=== PATIENT | female | born 1980 | race Caucasian/White ===

== ENCOUNTER 2019-05-21 06:54 | Inpatient (IN) | payer MEDICAID ==
[~2019-05-21] VITALS: Ht 147.3 cm; Wt 69.4 kg
[~2019-05-21 06:54] MED LIST: CIPR500T4 PO; DOCU-144 PO; FER325 PO; HYDR-3601 PO; IBUP200C11 PO; METR500T PO; POLY17PO6 PO
[2019-05-21 07:00] VITALS: Ht 147.3 cm; Wt 69.4 kg
[2019-05-21] MEDS ORDERED: SOD CHLORIDE 0.9% 1,000 ML IV STA (07:21)
[2019-05-21] MEDS ORDERED: KETOROLAC 15 MG INJ IV STA (07:21)
[2019-05-21] MEDS ORDERED: LIDOCAINE/MYLANTA 40 ML BTL PO STA (07:21)
[2019-05-21] MEDS ORDERED: BELLADONNA/PHENOBARBITAL TAB PO STA (07:21)
[2019-05-21] MEDS ORDERED: ONDANSETRON 4 MG INJ IV STA (07:21)
[2019-05-21] MEDS ORDERED: HYDROmorphONE 0.5 MG/0.5 ML SYG IV STA ×2 (08:09→14:03)
[2019-05-21] MEDS ORDERED: PIPER-TAZO 3.375 GM IV (PMX) 100 ML IVPB ONE (09:00)
--- NOTE | 2019-05-21 09:34 | ERD ---
ER Documentation Chief Complaint Chief Complaint right upper abd pain rad to mid, active vomiting HPI 38-year-old woman complaining of right upper quadrant abdominal pain, nausea, vomiting beginning last night. She feels weak and dehydrated, denies diarrhea, no blood per rectum or melena, no hematemesis. Patient denies similar symptoms in the past. She states abdominal pain is localized to the right upper quadrant and is nonexertional nonradiating. Patient denies chest pain or shortness of breath. ROS All systems reviewed and are negative except as per history of present illness. Medications Home Meds Reported Medications Ibuprofen* (Advil*) 200 Mg Capsule, 600 MG PO Q6H PRN for PAIN, CAP 05/21/19 Allergies Allergies: Coded Allergies: No Known Allergy (Unverified , 05/21/19) PMhx/Soc Obesity History of Surgery: Yes (C SECTION ) Anesthesia Reaction: No Hx Neurological Disorder: No Hx Respiratory Disorders: No Hx Cardiac Disorders: No Hx Psychiatric Problems: No Hx Miscellaneous Medical Probl: No Hx Alcohol Use: No Hx Substance Use: No Hx Tobacco Use: No Smoking Status: Never smoker FmHx Family History: No diabetes Physical Exam Vitals Vital Signs Date Temp Pulse Resp B/P (MAP) Pulse Ox O2 O2 Flow FiO2 Time Delivery Rate 05/21/19 71 18 97/69 (78) 99 Room Air 09:10 05/21/19 80 18 135/72 100 Room Air 07:30 (93) 05/21/19 98.5 84 20 131/75 100 07:00 (93) Physical Exam GENERAL: Well-developed, well-nourished, well-hydrated, moderate discomfort, afebrile CARDIAC: Regular rate and rhythm, no murmurs rubs or gallops LUNGS: Clear bilaterally no wheezing crackles or stridor ABDOMEN: Mild right upper quadrant tenderness to touch with voluntary guarding, no rigidity, no rebound, no psoas sign, no McBurney's point tenderness SKIN: Warm and dry to touch, no abrasions, contusions, or hematomas, no lacerations, no ecchymosis, no target lesions, and without ulcers EXTREMITIES: No clubbing cyanosis or edema, calves are bilaterally symmetrical, no Homans sign, no popliteal cord sign. Distal pulses equal and bilateral PSYCH: Normal affect without agitation or irritability Result Diagram: 05/21/19 0717 05/21/19 0717 Results 24 hrs Laboratory Tests Test 05/21/19 07:09 05/21/19 07:17 05/21/19 07:20 Urine Color STRAW Urine Clarity CLEAR Urine pH 7.0 Urine Specific [place] 1.015 Urine Ketones NEGATIVE mg/dL Urine Nitrite NEGATIVE mg/dL Urine Bilirubin NEGATIVE mg/dL Urine Urobilinogen NEGATIVE mg/dL Urine Leukocyte Esterase NEGATIVE Jennifer/ul Urine Microscopic RBC 3 /HPF Urine Microscopic WBC 1 /HPF Urine Squamous Epithelial Cells FEW /HPF Urine Hemoglobin 2+ mg/dL Urine Glucose NEGATIVE mg/dL Urine Total Protein NEGATIVE mg/dl White Blood Count 8.0 10^3/ul Red Blood Count 4.62 10^6/ul Hemoglobin 6.5 g/dl Hematocrit 24.9 % Mean Corpuscular Volume 53.9 fl Mean Corpuscular Hemoglobin 14.1 pg Mean Corpuscular 26.1 g/dl Hemoglobin Concent Red Cell Distribution Width 22.3 % Platelet Count 461 10^3/UL Mean Platelet Volume 9.6 fl Immature Granulocytes % 0.200 % Neutrophils % 67.2 % Segmented Neutrophils % (Manual) 69 % Band Neutrophils % (Manual) 2 % Lymphocytes % 25.1 % Lymphocytes % (Manual) 20 % Monocytes % 5.9 % Monocytes % (Manual) 3 % Eosinophils % 1.0 % Eosinophils % (Manual) 4 % Basophils % 0.6 % Basophils % (Manual) 2 % Nucleated Red Blood Cells % 0.0 /100WBC Immature Granulocytes # 0.020 10^3/ul Neutrophils # 5.4 10^3/ul Neutrophils # (Manual) 5.5 10^3/ul Band Neutrophils # 0.1 10^3/ul Lymphocytes (Manual) 1.6 10^3/ul Lymphocytes # 2.0 10^3/ul Monocytes # 0.5 10^3/ul Monocytes # (Manual) 0.2 10^3/ul Eosinophils # 0.1 10^3/ul Basophils # 0.1 10^3/ul Basophils # (Manual) 0.1 10^3/ul Nucleated Red Blood Cells # 0.0 10^3/ul Pathologist Review (Hematology) YES Platelet Estimate NORMAL Giant Platelets 5 % Polychromasia 1+ Hypochromasia 3+ Poikilocytosis 2+ Anisocytosis 3+ Microcytosis 3+ Ovalocytes 1+ Sodium Level 138 mmol/L Potassium Level 3.7 mmol/L Chloride Level 105 mmol/L Carbon Dioxide Level 23 mmol/L Anion Gap 10 Blood Urea Nitrogen 11 mg/dl Creatinine 0.38 mg/dl Est Glomerular Filtrat > 60 mL/min Rate mL/min Glucose Level 127 mg/dl Calcium Level 8.8 mg/dl Total Bilirubin 1.0 mg/dl Direct Bilirubin 0.00 mg/dl Indirect Bilirubin 1.0 mg/dl Aspartate Amino 25 IU/L Transf (AST/SGOT) Alanine 35 IU/L Aminotransferase (ALT/SGPT) Alkaline Phosphatase 100 IU/L Total Protein 8.8 g/dl Albumin 4.3 g/dl Globulin 4.50 g/dl Albumin/Globulin Ratio 0.95 Lipase 48 U/L POC Beta HCG, Qualitative NEGATIVE Current Medications Medications Dose Sig/Jaspal Start Time Status Last (Trade) Ordered Route PRN Stop Time Admin Dose Reason Admin Sodium 1,000 ml @ Q1H STAT 05/21/19 DC 05/21/19 Chloride 1,000 mls/hr IV 07:21 07:30 05/21/19 08:20 Ondansetron 4 mg ONCE STAT 05/21/19 DC 05/21/19 HCl (Zofran IV 07:21 07:30 Inj) 05/21/19 07:24 40 ml ONCE STAT 05/21/19 DC 05/21/19 Miscellaneous PO 07:21 07:30 Medication 05/21/19 07:24 (Gi Cocktail (2)) Belladonna/ 2 tab ONCE STAT 05/21/19 DC 05/21/19 Phenobarbital PO 07:21 07:30 () 05/21/19 07:24 Ketorolac 15 mg ONCE STAT 05/21/19 DC 05/21/19 Tromethamine IV 07:21 07:31 (Toradol) 05/21/19 07:24 1 mg ONCE STAT 05/21/19 DC 05/21/19 Hydromorphone IV 08:09 08:18 HCl 05/21/19 08:12 (Dilaudid) Piperacillin 100 ml @ ONCE ONCE 05/21/19 05/21/19 Sod/ 200 mls/hr IVPB 09:00 08:44 Tazobactam 05/21/19 09:29 Sod Procedures/MDM IV line was established patient was placed on cardiac cath lab radiology technologist rhythm strip revealed a sinus rhythm at about 80 bpm with upright P and T waves. Patient was afebrile I administered 1 L normal saline IV, Toradol 15 mg IV, Zofran 4 mg IV, GI cocktail p.o. For continued abdominal pain administered hydromorphone 1 mg IV Ultrasound of the right upper quadrant abdomen was performed revealing evidence of early cholecystitis with gallbladder wall thickening and immobile gallstones CT scan of the abdomen pelvis was also performed again concerning for cholelithiasis and possible cholecystitis. Please refer to radiologist dictation for full report. CBC revealed anemia with a hemoglobin of 6.5, electrolytes are normal, liver function tests were normal, troponin negative, urinalysis negative for infection negative for Patient denies vaginal or rectal bleeding and states she has had anemia in the past, but denies prior transfusions. I ordered PRBC transfusion 2 units IV over 2 hours given her anemia, patient may also require urgent cholecystectomy. Also administered Zosyn 3.375 g IV. Critical Care: Time: 40 minutes, this was time separate from other billable procedures. Treatments/Evaluations: Close monitoring and treatment of unstable vital signs, cardiorespiratory, and neurologic status, while maintaining tight balance of fluid, respiratory, and cardiac interventions. On-call surgeon has been paged and patient will be admitted to [facility]. Departure Diagnosis: Primary Impression: Symptomatic anemia Additional Impression: Acute cholecystitis Condition: ELZA Steward MD May 21, 2019 09:34
[2019-05-21 11:26] VITALS: BP 129/70; PULSE 64; RESP 18
[2019-05-21] MEDS ORDERED: SOD CHLORIDE 0.9% 1,000 ML IV SCH (11:45)
[2019-05-21] MEDS ORDERED: morphine 2 MG INJ IV PRN (12:00)
[2019-05-21] MEDS: ACETAMINOPHEN 325 MG TAB PO PRN ×2 (12:00→21:41)
[2019-05-21] MEDS ORDERED: NACL 0.9% 3 ML SYG IV SCH (12:00)
[2019-05-21 13:36] VITALS: BP 107/64; PULSE 60; RESP 20
--- NOTE | 2019-05-21 14:39 | CONS ---
Assessment/Plan Assessment/Plan Hospital Course (Demo Recall) 1. Symptomatic cholelithiasis with concern for cholecystitis: -Antibiotics -N.p.o. -IV fluids 2. Abdominal pain -Pain management 3.Microcytic hypochromic anemia: -Monitor and transfuse as needed -Further work-up and management per medical team 4. Obesity: bmi -diet and exercise optimization -encourage weight loss Thank you. Patient seen and examined in collaboration with Dr. Eyad Ziegler. Consultation Date/Type/Reason Admit Date/Time May 21, 2019 at 09:04 Date of Consultation: May 21, 2019 Type of Consult Surgical Reason for Consultation Abdominal pain, cholelithiasis Requesting Provider: ELZA TILLMAN MD Date/Time of Note DATE: 05/21/19 TIME: 14:20 Hx of Present Illness Lucrecia Butler is a 38-year-old woman with no known past medical history who presented with complaints of abdominal pain. Abdominal pain is primarily in the right upper quadrant and back strong and constant. Associated symptoms include nausea with vomiting, nonbloody emesis, subjective fevers, as well as weakness. She denies hematemesis, hematochezia, melena, skin or scleral changes, prandial associated pain, chest pain, palpitations, change in bowel or bladder habits. On work-up, she was also noted to have cholelithiasis with stones in the dependent portion of gallbladder as well as gallbladder neck which are nonmobile with borderline gallbladder wall thickening. Laboratory findings significant for anemia as well as thrombocytosis. Additionally, she reports heavy menstrual bleeding with blood clots, last menstrual period was last week. General surgery was asked to evaluate. 12 point review of systems was performed and is negative except for as stated in HPI. Past Medical History obesity Home Meds Reported Medications Ibuprofen* (Advil*) 200 Mg Capsule, 600 MG PO Q6H PRN for PAIN, CAP 05/21/19 Medications Current Medications Sodium Chloride 1,000 ml @ 75 mls/hr [id number] IV Last administered on 05/21/19at 12:00; Admin Dose 75 MLS/HR; Start 05/21/19 at 11:45 IV Flush (NS 3 ml) 3 ml PER PROTOCOL IV ; Start 05/21/19 at 12:00 Ondansetron HCl (Zofran Inj) 4 mg Q6H PRN IV NAUSEA/VOMITING; Start 05/21/19 at 12:00 Acetaminophen (Tylenol Tab) 650 mg Q6H PRN PO .PAIN 1-3 OR TEMP Last administered on 05/21/19at 12:00; Admin Dose 650 MG; Start 05/21/19 at 12:00 Hydromorphone HCl (Dilaudid) 1 mg Q4H PRN IV SEVERE PAIN LEVEL 7-10; Start 05/21/19 at 14:30 Allergies: Coded Allergies: No Known Allergy (Unverified , 05/21/19) Past Surgical History Past Surgical Hx: no surgical history Family History Significant Family History: no pertinent family hx Social History Alcohol Use: none Smoking Status: Never smoker Drug Use: none Exam/Review of Systems Exam Vitals Vital Signs Date Temp Pulse Resp B/P (MAP) Pulse Ox O2 O2 Flow FiO2 Time Delivery Rate 05/21/19 98.5 60 20 107/64 95 Room Air 13:36 (78) Constitutional: alert, oriented Psych: anxiety (min ) Head: normocephalic, atraumatic Eyes: nl conjunctiva, nl lids, nl sclera ENMT: nl external ears & nose, nl lips & teeth, mucosa pink and moist Neck: supple, non-tender Respiratory: normal air movement; No congested cough Cardiovascular: regular rate and rhythm, nl pulses Gastrointestinal: soft, distended (mod), tender (mod) Genitourinary - Female: nl external genitalia Musculoskeletal: nl gait and stance Extremities: normal pulses; No edema, No pitting pedal edema Neurological: nl mental status, nl speech, nl strength Skin: No rash or lesions Lymph: nl lymph nodes Results Result Diagram: 05/21/19 0717 05/21/19 0717 Results 24hrs Laboratory Tests Test 05/21/19 07:09 05/21/19 07:17 05/21/19 07:20 Urine Color STRAW Urine Clarity CLEAR Urine pH 7.0 Urine Specific [place] 1.015 Urine Ketones NEGATIVE Urine Nitrite NEGATIVE Urine Bilirubin NEGATIVE Urine Urobilinogen NEGATIVE Urine Leukocyte Esterase NEGATIVE Urine Microscopic RBC 3 Urine Microscopic WBC 1 Urine Squamous Epithelial Cells FEW Urine Hemoglobin 2+ H Urine Glucose NEGATIVE Urine Total Protein NEGATIVE White Blood Count 8.0 Red Blood Count 4.62 Hemoglobin 6.5 *L Hematocrit 24.9 L Mean Corpuscular Volume 53.9 L Mean Corpuscular Hemoglobin 14.1 L Mean Corpuscular Hemoglobin Concent 26.1 L Red Cell Distribution Width 22.3 H Platelet Count 461 H Mean Platelet Volume 9.6 Immature Granulocytes % 0.200 Neutrophils % 67.2 Segmented Neutrophils % (Manual) 69 Band Neutrophils % (Manual) 2 Lymphocytes % 25.1 Lymphocytes % (Manual) 20 Monocytes % 5.9 Monocytes % (Manual) 3 Eosinophils % 1.0 Eosinophils % (Manual) 4 Basophils % 0.6 Basophils % (Manual) 2 Nucleated Red Blood Cells % 0.0 Immature Granulocytes # 0.020 Neutrophils # 5.4 Neutrophils # (Manual) 5.5 Band Neutrophils # 0.1 Lymphocytes (Manual) 1.6 Lymphocytes # 2.0 Monocytes # 0.5 Monocytes # (Manual) 0.2 L Eosinophils # 0.1 Basophils # 0.1 Basophils # (Manual) 0.1 H Nucleated Red Blood Cells # 0.0 Pathologist Review (Hematology) YES Platelet Estimate NORMAL Giant Platelets 5 H Polychromasia 1+ Hypochromasia 3+ Poikilocytosis 2+ Anisocytosis 3+ Microcytosis 3+ Ovalocytes 1+ Sodium Level 138 Potassium Level 3.7 Chloride Level 105 Carbon Dioxide Level 23 Anion Gap 10 Blood Urea Nitrogen 11 Creatinine 0.38 L Est Glomerular Filtrat Rate mL/min > 60 Glucose Level 127 Calcium Level 8.8 Iron Level 14 L Total Iron Binding Capacity 547 H Percent Iron Saturation 3 L Total Bilirubin 1.0 Direct Bilirubin 0.00 Indirect Bilirubin 1.0 Aspartate Amino Transf (AST/SGOT) 25 Alanine Aminotransferase (ALT/SGPT) 35 Alkaline Phosphatase 100 Total Protein 8.8 H Albumin 4.3 Globulin 4.50 H Albumin/Globulin Ratio 0.95 Lipase 48 POC Beta HCG, Qualitative NEGATIVE Medications Medication Current Medications Sodium Chloride 1,000 ml @ 75 mls/hr [id number] IV Last administered on 05/21/19at 12:00; Admin Dose 75 MLS/HR; Start 05/21/19 at 11:45 IV Flush (NS 3 ml) 3 ml PER PROTOCOL IV ; Start 05/21/19 at 12:00 Ondansetron HCl (Zofran Inj) 4 mg Q6H PRN IV NAUSEA/VOMITING; Start 05/21/19 at 12:00 Acetaminophen (Tylenol Tab) 650 mg Q6H PRN PO .PAIN 1-3 OR TEMP Last administered on 05/21/19at 12:00; Admin Dose 650 MG; Start 05/21/19 at 12:00 Hydromorphone HCl (Dilaudid) 1 mg Q4H PRN IV SEVERE PAIN LEVEL 7-10; Start 05/21/19 at 14:30 JAIRO NARANJO NP May 21, 2019 14:30
[2019-05-21] MEDS ORDERED: MAGNESIUM HYDROXIDE 30ML CUP PO ONE (15:00)
[2019-05-21] MEDS ORDERED: POLYETHYLENE GLYCOL 17 GM PACKET PO PRN (15:00)
--- NOTE | 2019-05-21 15:22 | HP ---
Date/Time of Note Date/Time of Note DATE: 05/21/19 TIME: 15:05 Assessment/Plan VTE Prophylaxis Pharmacological prophylaxis: NA/contraindicated Pharm contraindication: anticoag not tolerated Lines/Catheters IV Catheter Type (from Nrs): Peripheral IV Assessment/Plan Hospital Course SUBJECTIVE: Lying in bed, complaining of 10 out of 10 right-sided upper/lower abdominal pain. Denies hematemesis/hematochezia/melena/hematuria. Denies any current vaginal bleeding and LMP a week ago. OBJECTIVE: Vital signs-see below PHYSICAL EXAM: Constitutional: Adequately built,not in acute distress. HEENT: Head atraumatic and normocephalic. Eyes: Extraocular muscles intact. Anicteric sclerae. Pupils equal bilaterally, reactive to light. NECK: Supple without lymph node. CHEST: Clear and good breath sounds equally. No wheezing. No rhonchi. HEART: S1, S2. Regular rate and rhythm. ABDOMEN: Soft/non tender with no rebound tenderness. Bowel sounds were present. EXTREMITIES: No cyanosis, clubbing or edema. NEUROLOGIC: Alert and oriented x3. No focal deficit. No sensory deficit. PSYCHOSOCIAL: No signs of depression. INTEGUMENTARY: No open wounds. ASSESSMENT AND PLAN:38 yo F w/no pmh here w/ sudden onset of right-sided abdominal pain associated with multiple episodes of nonbilious/nonbloody vomiting.... Severe anemia with microcytic indicis. -Add iron panel to a.m. labs and treat accordingly -2 units PRBC to be transfused today with serial H&H monitoring -Stool OB -In light of vomiting/abdominal pain, reasonable to seek GI consultation to rule out GI blood loss -Hematology consultation pending iron studies -Non OB pelvic us to r/o DIESEL LOCOMOTIVE FIRER blood loss etiologies (LMP X1 wk ago-mod.heavy period) Cholelithiasis w/ questionable cholecystitis -We will start patient on antimicrobial and will follow-up surgical recommendations. N/V Abdominal pain w/ possible gallbladder etiology versus GI etiology -pain control/PRN antiemetics Obesity with a BMI 32 -Lifestyle changes/weight reduction advised. Obtain A1c, lipid panel DVT prophylaxis: SCDs PUD prophylaxis: PPI Rest of the management depend on hospital course. Approximately 60-minute was spent on this history and physical. Patient was seen in collaboration with Dr. Vega Result Diagram: 05/21/19 0717 05/21/19 0717 Results 24hrs Laboratory Tests Test 05/21/19 07:09 05/21/19 07:17 05/21/19 07:20 Urine Color STRAW Urine Clarity CLEAR Urine pH 7.0 Urine Specific [place] 1.015 Urine Ketones NEGATIVE Urine Nitrite NEGATIVE Urine Bilirubin NEGATIVE Urine Urobilinogen NEGATIVE Urine Leukocyte Esterase NEGATIVE Urine Microscopic RBC 3 Urine Microscopic WBC 1 Urine Squamous Epithelial Cells FEW Urine Hemoglobin 2+ H Urine Glucose NEGATIVE Urine Total Protein NEGATIVE White Blood Count 8.0 Red Blood Count 4.62 Hemoglobin 6.5 *L Hematocrit 24.9 L Mean Corpuscular Volume 53.9 L Mean Corpuscular Hemoglobin 14.1 L Mean Corpuscular Hemoglobin Concent 26.1 L Red Cell Distribution Width 22.3 H Platelet Count 461 H Mean Platelet Volume 9.6 Immature Granulocytes % 0.200 Neutrophils % 67.2 Segmented Neutrophils % (Manual) 69 Band Neutrophils % (Manual) 2 Lymphocytes % 25.1 Lymphocytes % (Manual) 20 Monocytes % 5.9 Monocytes % (Manual) 3 Eosinophils % 1.0 Eosinophils % (Manual) 4 Basophils % 0.6 Basophils % (Manual) 2 Nucleated Red Blood Cells % 0.0 Immature Granulocytes # 0.020 Neutrophils # 5.4 Neutrophils # (Manual) 5.5 Band Neutrophils # 0.1 Lymphocytes (Manual) 1.6 Lymphocytes # 2.0 Monocytes # 0.5 Monocytes # (Manual) 0.2 L Eosinophils # 0.1 Basophils # 0.1 Basophils # (Manual) 0.1 H Nucleated Red Blood Cells # 0.0 Pathologist Review (Hematology) YES Platelet Estimate NORMAL Giant Platelets 5 H Polychromasia 1+ Hypochromasia 3+ Poikilocytosis 2+ Anisocytosis 3+ Microcytosis 3+ Ovalocytes 1+ Sodium Level 138 Potassium Level 3.7 Chloride Level 105 Carbon Dioxide Level 23 Anion Gap 10 Blood Urea Nitrogen 11 Creatinine 0.38 L Est Glomerular Filtrat Rate mL/min > 60 Glucose Level 127 Calcium Level 8.8 Iron Level 14 L Total Iron Binding Capacity 547 H Percent Iron Saturation 3 L Total Bilirubin 1.0 Direct Bilirubin 0.00 Indirect Bilirubin 1.0 Aspartate Amino Transf (AST/SGOT) 25 Alanine Aminotransferase (ALT/SGPT) 35 Alkaline Phosphatase 100 Total Protein 8.8 H Albumin 4.3 Globulin 4.50 H Albumin/Globulin Ratio 0.95 Lipase 48 POC Beta HCG, Qualitative NEGATIVE HPI/ROS Admit Date/Time Admit Date/Time May 21, 2019 at 09:04 Hx of Present Illness This is a 38-year-old obese [place]an-speaking female with no significant past medical history other than C-sections, presented to the emergency room with sudden onset of right-sided upper/lower abdominal pain associated with multiple episodes of nonbilious/nonbloody vomiting started last night. Patient denied any fever, chills, diarrhea, hematemesis, hematochezia, dysuria, hematuria. Patient reports constipation occasionally. Patient denied chest pain, palpitation, shortness of breath, numbness, tingling, dizziness, loss of consciousness, speech difficulties, vision changes or other constitutional symptoms. Her last LMP was a week ago. In the emergency room, patient was noted with a hemoglobin 6.5, hematocrit 24.9 with microcytic indicis. Chemistries normal, UA unremarkable. Patient had a CT abdomen and pelvis showed cholelithiasis with no CT evidence of obstructive uropathy, renal calculi. There was evidence of retained stool within the proximal colon without any CT evidence of obstruction. There was no CT evidence of appendicitis. Gallbladder ultrasound shows no visible liver lesion or biliary ductal dilatation. There was cholelithiasis in the dependent portion of the gallbladder with gallstones at the gallbladder neck which are nonmobile with borderline gallbladder wall thickening. Patient was given Zosyn in the emergency room and a surgical consult was called. 2 units of PRBC ordered from the emergency room. ROS A 12 point review of system was assessed and is negative other than what is mentioned in the HPI PMH/Family/Social Past Medical History See HPI Medications Current Medications IV Flush (NS 3 ml) 3 ml PER PROTOCOL IV ; Start 05/21/19 at 12:00 Ondansetron HCl (Zofran Inj) 4 mg Q6H PRN IV NAUSEA/VOMITING; Start 05/21/19 at 12:00 Acetaminophen (Tylenol Tab) 650 mg Q6H PRN PO .PAIN 1-3 OR TEMP Last administered on 05/21/19at 12:00; Admin Dose 650 MG; Start 05/21/19 at 12:00 Hydromorphone HCl (Dilaudid) 1 mg Q4H PRN IV SEVERE PAIN LEVEL 7-10; Start 05/21/19 at 14:30 Ferric Sodium Gluconate Complex 125 mg/Sodium Chloride 100 ml @ 100 mls/hr DAILY@1300 IVPB ; Start 05/22/19 at 18:00; Stop 05/24/19 at 13:59; Status UNV Piperacillin Sod/ Tazobactam Sod 100 ml @ 200 mls/hr Q6 IVPB ; Start 05/21/19 at 18:00; Status UNV Magnesium Hydroxide (Milk Of Mag) 30 ml ONCE ONCE PO ; Start 05/21/19 at 15:00; Stop 05/21/19 at 15:01; Status UNV Polyethylene Glycol (Miralax) 17 gm DAILY PRN PO CONSTIPATION; Start 05/21/19 at 15:00; Status UNV Docusate Sodium (Colace) 250 mg BID PO ; Start 05/21/19 at 21:00; Status UNV Coded Allergies: No Known Allergy (Unverified , 05/21/19) Past Surgical History See HPI Past Surgical Hx: no surgical history Family History Significant Family History: no pertinent family hx Social History Denied history of alcohol, smoking or illicit drug use. Alcohol Use: none Smoking Status: Never smoker Drug Use: none Exam/Review of Systems Vital Signs Vitals Vital Signs Date Temp Pulse Resp B/P (MAP) Pulse Ox O2 O2 Flow FiO2 Time Delivery Rate 05/21/19 98.5 60 20 107/64 95 Room Air 13:36 (78) RAUL RIGGS V. TECHNICAL SERVICE REPRESENTATIVE May 21, 2019 15:16
--- NOTE | 2019-05-21 15:22 | QN ---
Documentation Comment Iron panel noted. Start Ferrlecit IV x3 doses. Hematology consultation r vin. RAUL RIGGS NP May 21, 2019 15:22
--- NOTE | 2019-05-21 15:47 | CONS ---
Assessment/Plan Assessment/Plan Assessment/Plan (Daily) Assessment: Cholelithiasis/rule out acute cholecystitis Chronic anemia -likely due to menorrhagia Nausea/vomiting Right upper quadrant abdominal pain Obesity Plan: HIDA scan Keep n.p.o. IV fluids Pain management Stool for occult blood If stool is positive for occult blood recommend EGD/colonoscopy for anemia work- up Patient seen in collaboration with Dr. Ramirez Consultation Date/Type/Reason Admit Date/Time May 21, 2019 at 09:04 Date of Consultation: May 21, 2019 Type of Consult GI Reason for Consultation Nausea/Vomiting/Anemia Date/Time of Note DATE: 05/21/19 TIME: 15:28 Hx of Present Illness This is a 38-year-old female with history of obesity, menorrhagia and chronic anemia who was admitted for right upper quadrant pain, nausea and vomiting. Leandro dave reports symptoms started yesterday. Abdominal ultrasound shows cholelithiasis with thickening of the gallbladder. We will order HIDA scan to rule out acute cholecystitis. Liver function test is normal. Hemoglobin is 6.5. Patient reports having heavy menstrual flow for the past 4 months. Pelvic ultrasound and occult blood have been ordered. Currently patient denies nausea, vomiting, hematemesis or hematochezia. We will continue observation. Gastrointestinal: no complaints (See HPI) Past Medical History Chronic anemia, obesity Home Meds Reported Medications Ibuprofen* (Advil*) 200 Mg Capsule, 600 MG PO Q6H PRN for PAIN, CAP 05/21/19 Medications Current Medications IV Flush (NS 3 ml) 3 ml PER PROTOCOL IV ; Start 05/21/19 at 12:00 Ondansetron HCl (Zofran Inj) 4 mg Q6H PRN IV NAUSEA/VOMITING; Start 05/21/19 at 12:00 Acetaminophen (Tylenol Tab) 650 mg Q6H PRN PO .PAIN 1-3 OR TEMP Last administered on 05/21/19at 12:00; Admin Dose 650 MG; Start 05/21/19 at 12:00 Hydromorphone HCl (Dilaudid) 1 mg Q4H PRN IV SEVERE PAIN LEVEL 7-10; Start 05/21/19 at 14:30 Ferric Sodium Gluconate Complex 125 mg/Sodium Chloride 100 ml @ 100 mls/hr DAILY@1300 IVPB ; Start 05/22/19 at 18:00; Stop 05/24/19 at 13:59; Status UNV Piperacillin Sod/ Tazobactam Sod 100 ml @ 200 mls/hr Q6 IVPB ; Start 05/21/19 at 18:00; Status UNV Magnesium Hydroxide (Milk Of Mag) 30 ml ONCE ONCE PO ; Start 05/21/19 at 15:00; Stop 05/21/19 at 15:01; Status UNV Polyethylene Glycol (Miralax) 17 gm DAILY PRN PO CONSTIPATION; Start 05/21/19 at 15:00; Status UNV Docusate Sodium (Colace) 250 mg BID PO ; Start 05/21/19 at 21:00; Status UNV Pantoprazole (Protonix Iv) 40 mg BID@06,18 IV ; Start 05/21/19 at 18:00; Status UNV Sodium Chloride 1,000 ml @ 75 mls/hr [id number] IV ; Start 05/21/19 at 15:30; Status UNV Allergies: Coded Allergies: No Known Allergy (Unverified , 05/21/19) Past Surgical History Past Surgical Hx: no surgical history Social History Alcohol Use: none Smoking Status: Never smoker Drug Use: none Exam/Review of Systems Exam Vitals Vital Signs Date Temp Pulse Resp B/P (MAP) Pulse Ox O2 O2 Flow FiO2 Time Delivery Rate 05/21/19 98.5 60 20 107/64 95 Room Air 13:36 (78) Exam PHYSICAL EXAMINATION: GENERAL: Well developed, obese, well nourished, alert & oriented x 3, in no acute distress SKIN: No lesions, no stigmata chronic liver disease, no evidence of bleeding diathesis LYMPHATIC: No palpable lymphadenopathy. HEAD: Normocephalic, atraumatic, no tenderness. EYES: Pupils equal reactive to light and accommodation, full extraocular moveme nts, sclera clear, non-icteric, no discharge. EARS/NOSE AND THROAT: Ears normal, nose normal, oropharynx normal, oral membranes well hydrated without lesions. NECK: Supple, no masses, thyroid normal, JVP within normal limits, carotids normal without bruits. CHEST: Inspection within normal limits. CARDIOVASCULAR: Heart: Regular rate and rhythm, no murmurs, gallops or rubs. Peripheral pulses present within normal limits, no cyanosis, clubbing or edemas. No pulsatile abdominal mass RESPIRATORY: Lungs clear to auscultation and percussion, no wheezing, no rubs GASTROINTESTINAL AND LIVER: Abdomen: Soft, right upper quadrant tenderness, non- distended, no hernias, no masses, no organomegaly, no ascites, no guarding, no rebound tenderness, normoactive bowel sounds. Rectal: Deferred. GENITOURINARY: Female genitalia within normal limits. EXTREMITIES: No cyanosis, clubbing or edema. Results Result Diagram: 05/21/19 0717 05/21/19 0717 Results 24hrs Laboratory Tests Test 05/21/19 07:09 05/21/19 07:17 05/21/19 07:20 Urine Color STRAW Urine Clarity CLEAR Urine pH 7.0 Urine Specific [place] 1.015 Urine Ketones NEGATIVE Urine Nitrite NEGATIVE Urine Bilirubin NEGATIVE Urine Urobilinogen NEGATIVE Urine Leukocyte Esterase NEGATIVE Urine Microscopic RBC 3 Urine Microscopic WBC 1 Urine Squamous Epithelial Cells FEW Urine Hemoglobin 2+ H Urine Glucose NEGATIVE Urine Total Protein NEGATIVE White Blood Count 8.0 Red Blood Count 4.62 Hemoglobin 6.5 *L Hematocrit 24.9 L Mean Corpuscular Volume 53.9 L Mean Corpuscular Hemoglobin 14.1 L Mean Corpuscular Hemoglobin Concent 26.1 L Red Cell Distribution Width 22.3 H Platelet Count 461 H Mean Platelet Volume 9.6 Immature Granulocytes % 0.200 Neutrophils % 67.2 Segmented Neutrophils % (Manual) 69 Band Neutrophils % (Manual) 2 Lymphocytes % 25.1 Lymphocytes % (Manual) 20 Monocytes % 5.9 Monocytes % (Manual) 3 Eosinophils % 1.0 Eosinophils % (Manual) 4 Basophils % 0.6 Basophils % (Manual) 2 Nucleated Red Blood Cells % 0.0 Immature Granulocytes # 0.020 Neutrophils # 5.4 Neutrophils # (Manual) 5.5 Band Neutrophils # 0.1 Lymphocytes (Manual) 1.6 Lymphocytes # 2.0 Monocytes # 0.5 Monocytes # (Manual) 0.2 L Eosinophils # 0.1 Basophils # 0.1 Basophils # (Manual) 0.1 H Nucleated Red Blood Cells # 0.0 Pathologist Review (Hematology) YES Platelet Estimate NORMAL Giant Platelets 5 H Polychromasia 1+ Hypochromasia 3+ Poikilocytosis 2+ Anisocytosis 3+ Microcytosis 3+ Ovalocytes 1+ Sodium Level 138 Potassium Level 3.7 Chloride Level 105 Carbon Dioxide Level 23 Anion Gap 10 Blood Urea Nitrogen 11 Creatinine 0.38 L Est Glomerular Filtrat Rate mL/min > 60 Glucose Level 127 Calcium Level 8.8 Iron Level 14 L Total Iron Binding Capacity 547 H Percent Iron Saturation 3 L Total Bilirubin 1.0 Direct Bilirubin 0.00 Indirect Bilirubin 1.0 Aspartate Amino Transf (AST/SGOT) 25 Alanine Aminotransferase (ALT/SGPT) 35 Alkaline Phosphatase 100 Total Protein 8.8 H Albumin 4.3 Globulin 4.50 H Albumin/Globulin Ratio 0.95 Lipase 48 POC Beta HCG, Qualitative NEGATIVE Medications Medication Current Medications IV Flush (NS 3 ml) 3 ml PER PROTOCOL IV ; Start 05/21/19 at 12:00 Ondansetron HCl (Zofran Inj) 4 mg Q6H PRN IV NAUSEA/VOMITING; Start 05/21/19 at 12:00 Acetaminophen (Tylenol Tab) 650 mg Q6H PRN PO .PAIN 1-3 OR TEMP Last administered on 05/21/19at 12:00; Admin Dose 650 MG; Start 05/21/19 at 12:00 Hydromorphone HCl (Dilaudid) 1 mg Q4H PRN IV SEVERE PAIN LEVEL 7-10; Start 05/21/19 at 14:30 Ferric Sodium Gluconate Complex 125 mg/Sodium Chloride 100 ml @ 100 mls/hr DAILY@1300 IVPB ; Start 05/22/19 at 18:00; Stop 05/24/19 at 13:59; Status UNV Piperacillin Sod/ Tazobactam Sod 100 ml @ 200 mls/hr Q6 IVPB ; Start 05/21/19 at 18:00; Status UNV Magnesium Hydroxide (Milk Of Mag) 30 ml ONCE ONCE PO ; Start 05/21/19 at 15:00; Stop 05/21/19 at 15:01; Status UNV Polyethylene Glycol (Miralax) 17 gm DAILY PRN PO CONSTIPATION; Start 05/21/19 at 15:00; Status UNV Docusate Sodium (Colace) 250 mg BID PO ; Start 05/21/19 at 21:00; Status UNV Pantoprazole (Protonix Iv) 40 mg BID@06,18 IV ; Start 05/21/19 at 18:00; Status UNV Sodium Chloride 1,000 ml @ 75 mls/hr [id number] IV ; Start 05/21/19 at 15:30; Status UNV FERMIN CUELLAR CUSHION PADDER May 21, 2019 15:38
[2019-05-21] MEDS: PANTOPRAZOLE (EC) 40 MG TAB PO SCH (18:00)
[2019-05-21] MEDS: PIPER-TAZO 3.375 GM IV (PMX) 100 ML IVPB SCH ×2 (18:59→23:44)
[2019-05-21] MEDS: HYDROmorphONE 1 MG/ML SYG IV PRN ×2 (18:59→23:08)
[2019-05-21] MEDS: SOD CHLORIDE 0.9% 1,000 ML IV SCH (19:01)
[2019-05-21 19:25] VITALS: BP 112/71; PULSE 68; RESP 20
[2019-05-21] MEDS: DOCUSATE SODIUM 250 MG CAP PO SCH (21:41)
[2019-05-21] MEDS: ONDANSETRON 4 MG INJ IV PRN (21:41)
[2019-05-22 02:05] VITALS: BP 120/64; PULSE 82; RESP 18
[2019-05-22] MEDS: ONDANSETRON 4 MG INJ IV PRN (04:09)
[2019-05-22] MEDS: HYDROmorphONE 1 MG/ML SYG IV PRN ×5 (04:11→23:44)
[2019-05-22] MEDS: PIPER-TAZO 3.375 GM IV (PMX) 100 ML IVPB SCH ×4 (05:32→23:57)
[2019-05-22] MEDS: PANTOPRAZOLE (EC) 40 MG TAB PO SCH ×2 (07:01→17:42)
[2019-05-22] MEDS: SOD CHLORIDE 0.9% 1,000 ML IV SCH ×2 (07:04→17:45)
[2019-05-22 07:30] VITALS: BP 116/63; PULSE 81; RESP 18
[2019-05-22] MEDS: DOCUSATE SODIUM 250 MG CAP PO SCH ×2 (08:42→20:59)
--- NOTE | 2019-05-22 10:23 | PN ---
Date/Time of Note Date/Time of Note DATE: 05/22/19 TIME: 10:16 Assessment/Plan VTE Prophylaxis Risk score (from Ns)>0 risk: 2 SCD applied (from Ns): Yes Pharmacological prophylaxis: heparin Lines/Catheters IV C[facility]ter Type (from [facility]): Peripheral IV Assessment/Plan Problems: (1) Acute cholecystitis Status: Acute Comment: The patient has had her HIDA scan performed. It demonstrates nonvisualization of the gallbladder at 80 minutes, no evidence of common bile duct obstruction. At this time she is not settling down with symptoms and therefore we may be forced into moving toward surgery more quickly. She is on antibiotics at this time we are trying to get her to be less inflamed (2) Symptomatic anemia Status: Chronic Comment: She has a significant iron deficiency anemia. She has been transfused and organ to give her IV supplementation of iron to help get her iron stores up to normal. Will she will need an outpatient GI evaluation for this, although this is most likely due to menstrual blood loss (3) Obesity (BMI 30.0-34.9) Status: Chronic Comment: Counseled Result Diagram: 05/22/19 0425 05/22/19 0425 Results 24hrs Laboratory Tests Test 05/22/19 04:25 05/22/19 06:49 White Blood Count 17.7 #H Red Blood Count 5.25 Hemoglobin 9.1 #L Hematocrit 31.4 #L Mean Corpuscular Volume 59.8 L Mean Corpuscular Hemoglobin 17.3 #L Mean Corpuscular Hemoglobin Concent 29.0 L Red Cell Distribution Width 31.7 #H Platelet Count 381 Mean Platelet Volume Immature Granulocytes % 0.700 H Neutrophils % 87.8 H Lymphocytes % 5.2 L Monocytes % 5.9 Eosinophils % 0.1 Basophils % 0.3 Nucleated Red Blood Cells % 0.0 Immature Granulocytes # 0.120 H Neutrophils # 15.6 H Lymphocytes # 0.9 Monocytes # 1.1 H Eosinophils # 0.0 Basophils # 0.1 Nucleated Red Blood Cells # 0.0 Sodium Level 136 Potassium Level 3.5 Chloride Level 104 Carbon Dioxide Level 24 Anion Gap 8 Blood Urea Nitrogen 6 L Creatinine 0.41 L Est Glomerular Filtrat Rate mL/min > 60 Glucose Level 134 Hemoglobin A1c 5.5 Calcium Level 8.4 Phosphorus Level 2.8 Magnesium Level 2.0 Total Bilirubin 3.4 #H Direct Bilirubin 0.00 Indirect Bilirubin 3.4 H Aspartate Amino Transf (AST/SGOT) 29 Alanine Aminotransferase (ALT/SGPT) 23 Alkaline Phosphatase 92 Total Protein 8.2 H Albumin 3.9 Globulin 4.30 H Albumin/Globulin Ratio 0.90 Triglycerides Level 78 Cholesterol Level 157 LDL Cholesterol, Calculated 91 HDL Cholesterol 50 Cholesterol/HDL Ratio 3.1 Lab Scanned Report BLOOD TRANSFUSION CC: FERMIN CUELLAR NP; WILLIE MANUEL MD; COSME SCHAFFER MD; JAIRO NARANJO NP ; Subjective 24 Hr Interval Summary Free Text/Dictation Patient complains of right upper quadrant pain. Constitutional: no complaints (Denies fevers chills or sweats) Respiratory: no complaints Cardiovascular: no complaints Gastrointestinal: pain (Upper quadrant pain with nausea) Genitourinary: no complaints Musculoskeletal: no complaints Exam/Review of Systems Exam Vitals Vital Signs Date Temp Pulse Resp B/P (MAP) Pulse Ox O2 O2 Flow FiO2 Time Delivery Rate 05/22/19 99.8 81 18 116/63 98 Room Air 07:30 (80) Intake and Output 05/21/19 05/21/19 05/22/19 1515:00 23:00 07:00 IntakeIntake Total 1350 ml 1000 ml 875 ml BalanceBalance 1350 ml 1000 ml 875 ml Constitutional: alert, oriented Respiratory: clear to auscultation, normal air movement Cardiovascular: regular rate and rhythm, nl pulses Gastrointestinal: soft, nl liver, spleen, tender (Right upper quadrant tenderness without yecenia rebound) Results Results 24hrs Laboratory Tests Test 05/22/19 04:25 05/22/19 06:49 White Blood Count 17.7 #H Red Blood Count 5.25 Hemoglobin 9.1 #L Hematocrit 31.4 #L Mean Corpuscular Volume 59.8 L Mean Corpuscular Hemoglobin 17.3 #L Mean Corpuscular Hemoglobin Concent 29.0 L Red Cell Distribution Width 31.7 #H Platelet Count 381 Mean Platelet Volume Immature Granulocytes % 0.700 H Neutrophils % 87.8 H Lymphocytes % 5.2 L Monocytes % 5.9 Eosinophils % 0.1 Basophils % 0.3 Nucleated Red Blood Cells % 0.0 Immature Granulocytes # 0.120 H Neutrophils # 15.6 H Lymphocytes # 0.9 Monocytes # 1.1 H Eosinophils # 0.0 Basophils # 0.1 Nucleated Red Blood Cells # 0.0 Sodium Level 136 Potassium Level 3.5 Chloride Level 104 Carbon Dioxide Level 24 Anion Gap 8 Blood Urea Nitrogen 6 L Creatinine 0.41 L Est Glomerular Filtrat Rate mL/min > 60 Glucose Level 134 Hemoglobin A1c 5.5 Calcium Level 8.4 Phosphorus Level 2.8 Magnesium Level 2.0 Total Bilirubin 3.4 #H Direct Bilirubin 0.00 Indirect Bilirubin 3.4 H Aspartate Amino Transf (AST/SGOT) 29 Alanine Aminotransferase (ALT/SGPT) 23 Alkaline Phosphatase 92 Total Protein 8.2 H Albumin 3.9 Globulin 4.30 H Albumin/Globulin Ratio 0.90 Triglycerides Level 78 Cholesterol Level 157 LDL Cholesterol, Calculated 91 HDL Cholesterol 50 Cholesterol/HDL Ratio 3.1 Lab Scanned Report BLOOD TRANSFUSION Medications Medication Current Medications IV Flush (NS 3 ml) 3 ml PER PROTOCOL IV ; Start 05/21/19 at 12:00 Ondansetron HCl (Zofran Inj) 4 mg Q6H PRN IV NAUSEA/VOMITING Last administered on 05/22/19at 04:09; Admin Dose 4 MG; Start 05/21/19 at 12:00 Acetaminophen (Tylenol Tab) 650 mg Q6H PRN PO .PAIN 1-3 OR TEMP Last administered on 05/21/19at 21:41; Admin Dose 650 MG; Start 05/21/19 at 12:00 Hydromorphone HCl (Dilaudid) 1 mg Q4H PRN IV SEVERE PAIN LEVEL 7-10 Last administered on 05/22/19at 08:43; Admin Dose 1 MG; Start 05/21/19 at 14:30 Ferric Sodium Gluconate Complex 125 mg/Sodium Chloride 100 ml @ 100 mls/hr DAILY@1300 IVPB ; Start 05/22/19 at 18:00; Stop 05/24/19 at 13:59 Piperacillin Sod/ Tazobactam Sod 100 ml @ 200 mls/hr Q6 IVPB Last administered on 05/22/19at 05:32; Admin Dose 200 MLS/HR; Start 05/21/19 at 18:00 Polyethylene Glycol (Miralax) 17 gm DAILY PRN PO CONSTIPATION; Start 05/21/19 at 15:00 Docusate Sodium (Colace) 250 mg BID PO Last administered on 05/22/19at 08:42; Admin Dose 250 MG; Start 05/21/19 at 21:00 Pantoprazole (Protonix Tab) 40 mg BID@06,18 PO Last administered on 05/22/19at 07:01; Admin Dose 40 MG; Start 05/21/19 at 18:00 Sodium Chloride 1,000 ml @ 75 mls/hr [id number] IV Last administered on 05/22/19at 07:04; Admin Dose 75 MLS/HR; Start 05/21/19 at 15:30 Ferric Sodium Gluconate Complex 125 mg/Sodium Chloride 100 ml @ 100 mls/hr ONCE ONCE IVPB ; Start 05/22/19 at 10:30; Stop 05/22/19 at 11:29; Status RK DUGAN MD May 22, 2019 10:23
[2019-05-22] MEDS ORDERED: SOD FERRIC GLUC COMPLX 125 MG in SOD CHLORIDE 0.9% 100 ML IVPB ONE (11:30)
--- NOTE | 2019-05-22 11:57 | CONS ---
Assessment/Plan Assessment/Plan Assessment/Plan (Daily) Iron studies show severe iron deficiency and there is a history of menorrhagia. RBC transfusions were given and Hgb is up to ~9. IV iron is going to start today. I do not think further transfusion is needed. At this point the abdominal pain is associated with gall stones although clear obstruction has not been seen. Evaluation continues. Until it is clear that she is not going to surgery and until the abdominal pain abates, I would not plan to start PO iron. Eventually she should see a store stocker. Pelvic ultrasound does not show fibroids or other pathology. The beta HCG is negative. Stool for occult blood is not yet available but there is no history of bleeding from the GI tract, so she may not need endoscopy. We will follow with you. Note that it may take a week to see the beginning reticulocyte response to iron and likely several weeks for the anemia to correct even if there is no further vaginal bleeding. Consultation Date/Type/Reason Admit Date/Time May 21, 2019 at 09:04 Date of Consultation: May 22, 2019 Type of Consult Hematology Reason for Consultation Iron deficiency anemia Requesting Provider: RAUL RIGGS NP Date/Time of Note DATE: 05/22/19 TIME: 11:37 Hx of Present Illness 38 yo woman with iron deficiency anemia associated with menorrhagia. She came to the ER for RUQ pain that may be due to cholelithiasis; evaluation is still in progress. Stool for occult blood is ordered but no stool has been forthcoming, so it is not yet sent. There is no history of bleeding anywhere except vaginally, however. Pelvic imaging does not show uterine fibroids. She has been given RBC transfusion in the ER and IV iron is ordered and should be given in the early afternoon. PMH includes and a C section but she is on no medication except for prn ibuprofen. Past Medical History Home Meds Reported Medications Ibuprofen* (Advil*) 200 Mg Capsule, 600 MG PO Q6H PRN for PAIN, CAP 05/21/19 Medications Current Medications IV Flush (NS 3 ml) 3 ml PER PROTOCOL IV ; Start 05/21/19 at 12:00 Ondansetron HCl (Zofran Inj) 4 mg Q6H PRN IV NAUSEA/VOMITING Last administered on 05/22/19at 04:09; Admin Dose 4 MG; Start 05/21/19 at 12:00 Acetaminophen (Tylenol Tab) 650 mg Q6H PRN PO .PAIN 1-3 OR TEMP Last administered on 05/21/19at 21:41; Admin Dose 650 MG; Start 05/21/19 at 12:00 Hydromorphone HCl (Dilaudid) 1 mg Q4H PRN IV SEVERE PAIN LEVEL 7-10 Last administered on 05/22/19at 08:43; Admin Dose 1 MG; Start 05/21/19 at 14:30 Ferric Sodium Gluconate Complex 125 mg/Sodium Chloride 100 ml @ 100 mls/hr DAILY@1300 IVPB ; Start 05/22/19 at 18:00; Stop 05/24/19 at 13:59 Piperacillin Sod/ Tazobactam Sod 100 ml @ 200 mls/hr Q6 IVPB Last administered on 05/22/19at 05:32; Admin Dose 200 MLS/HR; Start 05/21/19 at 18:00 Polyethylene Glycol (Miralax) 17 gm DAILY PRN PO CONSTIPATION; Start 05/21/19 at 15:00 Docusate Sodium (Colace) 250 mg BID PO Last administered on 05/22/19at 08:42; Admin Dose 250 MG; Start 05/21/19 at 21:00 Pantoprazole (Protonix Tab) 40 mg BID@06,18 PO Last administered on 05/22/19at 07:01; Admin Dose 40 MG; Start 05/21/19 at 18:00 Sodium Chloride 1,000 ml @ 75 mls/hr [id number] IV Last administered on 05/22/19at 07:04; Admin Dose 75 MLS/HR; Start 05/21/19 at 15:30 Ferric Sodium Gluconate Complex 125 mg/Sodium Chloride 100 ml @ 100 mls/hr ONCE ONCE IVPB ; Start 05/22/19 at 11:30; Stop 05/22/19 at 12:29 Allergies: Coded Allergies: No Known Allergy (Unverified , 05/21/19) Past Surgical History Past Surgical Hx: no surgical history Social History Alcohol Use: none Smoking Status: Never smoker Drug Use: none Exam/Review of Systems Exam Vitals Vital Signs Date Temp Pulse Resp B/P (MAP) Pulse Ox O2 O2 Flow FiO2 Time Delivery Rate 05/22/19 99.8 81 18 116/63 98 Room Air 07:30 (80) Intake and Output 05/21/19 05/21/19 05/22/19 1515:00 23:00 07:00 IntakeIntake Total 1350 ml 1000 ml 875 ml BalanceBalance 1350 ml 1000 ml 875 ml Constitutional: alert, oriented, obese Head: normocephalic Eyes: other (conjunctival pallor) ENMT: other (no telangiectasia) Neck: supple Respiratory: clear to auscultation Cardiovascular: regular rate and rhythm Gastrointestinal: soft, tender (vague tenderness in the upper abdomen) Extremities: normal pulses Neurological: nl mental status, nl speech, nl strength Skin: rash or lesions (no rashes or telangiectasia) Lymph: nl lymph nodes Results Result Diagram: 05/22/1942405/22/19 0425 Results 24hrs Laboratory Tests Test 05/22/19 04:25 05/22/19 06:49 White Blood Count 17.7 #H Red Blood Count 5.25 Hemoglobin 9.1 #L Hematocrit 31.4 #L Mean Corpuscular Volume 59.8 L Mean Corpuscular Hemoglobin 17.3 #L Mean Corpuscular Hemoglobin Concent 29.0 L Red Cell Distribution Width 31.7 #H Platelet Count 381 Mean Platelet Volume Immature Granulocytes % 0.700 H Neutrophils % 87.8 H Lymphocytes % 5.2 L Monocytes % 5.9 Eosinophils % 0.1 Basophils % 0.3 Nucleated Red Blood Cells % 0.0 Immature Granulocytes # 0.120 H Neutrophils # 15.6 H Lymphocytes # 0.9 Monocytes # 1.1 H Eosinophils # 0.0 Basophils # 0.1 Nucleated Red Blood Cells # 0.0 Sodium Level 136 Potassium Level 3.5 Chloride Level 104 Carbon Dioxide Level 24 Anion Gap 8 Blood Urea Nitrogen 6 L Creatinine 0.41 L Est Glomerular Filtrat Rate mL/min > 60 Glucose Level 134 Hemoglobin A1c 5.5 Calcium Level 8.4 Phosphorus Level 2.8 Magnesium Level 2.0 Total Bilirubin 3.4 #H Direct Bilirubin 0.00 Indirect Bilirubin 3.4 H Aspartate Amino Transf (AST/SGOT) 29 Alanine Aminotransferase (ALT/SGPT) 23 Alkaline Phosphatase 92 Total Protein 8.2 H Albumin 3.9 Globulin 4.30 H Albumin/Globulin Ratio 0.90 Triglycerides Level 78 Cholesterol Level 157 LDL Cholesterol, Calculated 91 HDL Cholesterol 50 Cholesterol/HDL Ratio 3.1 Lab Scanned Report BLOOD TRANSFUSION Medications Medication Current Medications IV Flush (NS 3 ml) 3 ml PER PROTOCOL IV ; Start 05/21/19 at 12:00 Ondansetron HCl (Zofran Inj) 4 mg Q6H PRN IV NAUSEA/VOMITING Last administered on 05/22/19 04:09; Admin Dose 4 MG; Start 05/21/19 at 12:00 Acetaminophen (Tylenol Tab) 650 mg Q6H PRN PO .PAIN 1-3 OR TEMP Last administered on 05/21/19at 21:41; Admin Dose 650 MG; Start 05/21/19 at 12:00 Hydromorphone HCl (Dilaudid) 1 mg Q4H PRN IV SEVERE PAIN LEVEL 7-10 Last ad ministered on 05/22/19at 08:43; Admin Dose 1 MG; Start 05/21/19 at 14:30 Ferric Sodium Gluconate Complex 125 mg/Sodium Chloride 100 ml @ 100 mls/hr DAILY@1300 IVPB ; Start 05/22/19 at 18:00; Stop 05/24/19 at 13:59 Piperacillin Sod/ Tazobactam Sod 100 ml @ 200 mls/hr Q6 IVPB Last administered on 05/22/19 05:32; Admin Dose 200 MLS/HR; Start 05/21/19 at 18:00 Polyethylene Glycol (Miralax) 17 gm DAILY PRN PO CONSTIPATION; Start 05/21/19 at 15:00 Docusate Sodium (Colace) 250 mg BID PO Last administered on 05/22/19at 08:42; Admin Dose 250 MG; Start 05/21/19 at 21:00 Pantoprazole (Protonix Tab) 40 mg BID@06,18 PO Last administered on 05/22/19at 07:01; Admin Dose 40 MG; Start 05/21/19 at 18:00 Sodium Chloride 1,000 ml @ 75 mls/hr [id number] IV Last administered on 05/22/19 07:04; Admin Dose 75 MLS/HR; Start 05/21/19 at 15:30 Ferric Sodium Gluconate Complex 125 mg/Sodium Chloride 100 ml @ 100 mls/hr ONCE ONCE IVPB ; Start 05/22/19 at 11:30; Stop 05/22/19 at 12:29 CLARA RAMIREZ MD May 22, 2019 11:48
[2019-05-22] MEDS: ACETAMINOPHEN 325 MG TAB PO PRN (12:14)
[2019-05-22 15:54] VITALS: BP 115/71; PULSE 90; RESP 18
--- NOTE | 2019-05-22 16:14 | PN ---
Date/Time of Note Date/Time of Note DATE: 05/22/19 TIME: 15:59 Assessment/Plan VTE Prophylaxis Risk score (from Ns)>0 risk: 2 SCD applied (from Ns): Yes Pharmacological prophylaxis: NA/contraindicated Pharm contraindication: bleeding Lines/Catheters IV Catheter Type (from [facility]): Peripheral IV Assessment/Plan Assessment/Plan Assessment: Cholelithiasis/rule out acute cholecystitis HIDA scan 05/21/19: -No biliary ductal dilatation. -The gallstones at the gallbladder neck are non mobile and there is borderline gallbladder wall thickening. Acute cholecystitis is difficult to exclude. Chronic anemia -likely due to menorrhagia Nausea/vomiting Right upper quadrant abdominal pain Obesity Plan: Recommend surgical consultation based on HIDA scan results. No role for ERCP If surgery is considered, should obtain intraoperative cholangiogram. Keep n.p.o. IV fluids Pain management Stool for occult blood If stool is positive for occult blood recommend EGD/colonoscopy for anemia work-up Patient seen in collaboration with Dr. Ramirez Subjective: Patient continues to complain of severe right upper quadrant pain, controlled with medications. Denies nausea or vomiting. Discussed results of HIDA scan with patient and nurse at bedside. She was already seen by surgery. Continue supportive care and follow up on surgical recommendations. Result Diagram: 05/22/19 0425 05/22/19 0425 Results 24hrs Laboratory Tests Test 05/22/19 04:25 05/22/19 06:49 White Blood Count 17.7 #H Red Blood Count 5.25 Hemoglobin 9.1 #L Hematocrit 31.4 #L Mean Corpuscular Volume 59.8 L Mean Corpuscular Hemoglobin 17.3 #L Mean Corpuscular Hemoglobin Concent 29.0 L Red Cell Distribution Width 31.7 #H Platelet Count 381 Mean Platelet Volume Immature Granulocytes % 0.700 H Neutrophils % 87.8 H Lymphocytes % 5.2 L Monocytes % 5.9 Eosinophils % 0.1 Basophils % 0.3 Nucleated Red Blood Cells % 0.0 Immature Granulocytes # 0.120 H Neutrophils # 15.6 H Lymphocytes # 0.9 Monocytes # 1.1 H Eosinophils # 0.0 Basophils # 0.1 Nucleated Red Blood Cells # 0.0 Sodium Level 136 Potassium Level 3.5 Chloride Level 104 Carbon Dioxide Level 24 Anion Gap 8 Blood Urea Nitrogen 6 L Creatinine 0.41 L Est Glomerular Filtrat Rate mL/min > 60 Glucose Level 134 Hemoglobin A1c 5.5 Calcium Level 8.4 Phosphorus Level 2.8 Magnesium Level 2.0 Total Bilirubin 3.4 #H Direct Bilirubin 0.00 Indirect Bilirubin 3.4 H Aspartate Amino Transf (AST/SGOT) 29 Alanine Aminotransferase (ALT/SGPT) 23 Alkaline Phosphatase 92 Total Protein 8.2 H Albumin 3.9 Globulin 4.30 H Albumin/Globulin Ratio 0.90 Triglycerides Level 78 Cholesterol Level 157 LDL Cholesterol, Calculated 91 HDL Cholesterol 50 Cholesterol/HDL Ratio 3.1 Lab Scanned Report BLOOD TRANSFUSION CC: COSME RAMIREZ MD ; Exam/Review of Systems Exam Vitals Vital Signs Date Temp Pulse Resp B/P (MAP) Pulse Ox O2 O2 Flow FiO2 Time Delivery Rate 05/22/19 99.6 90 18 115/71 95 Room Air 15:54 (86) Intake and Output 05/21/19 05/21/19 05/22/19 1515:00 23:00 07:00 IntakeIntake Total 1350 ml 1000 ml 875 ml BalanceBalance 1350 ml 1000 ml 875 ml Results Results 24hrs Laboratory Tests Test 05/22/19 04:25 05/22/19 06:49 White Blood Count 17.7 #H Red Blood Count 5.25 Hemoglobin 9.1 #L Hematocrit 31.4 #L Mean Corpuscular Volume 59.8 L Mean Corpuscular Hemoglobin 17.3 #L Mean Corpuscular Hemoglobin Concent 29.0 L Red Cell Distribution Width 31.7 #H Platelet Count 381 Mean Platelet Volume Immature Granulocytes % 0.700 H Neutrophils % 87.8 H Lymphocytes % 5.2 L Monocytes % 5.9 Eosinophils % 0.1 Basophils % 0.3 Nucleated Red Blood Cells % 0.0 Immature Granulocytes # 0.120 H Neutrophils # 15.6 H Lymphocytes # 0.9 Monocytes # 1.1 H Eosinophils # 0.0 Basophils # 0.1 Nucleated Red Blood Cells # 0.0 Sodium Level 136 Potassium Level 3.5 Chloride Level 104 Carbon Dioxide Level 24 Anion Gap 8 Blood Urea Nitrogen 6 L Creatinine 0.41 L Est Glomerular Filtrat Rate mL/min > 60 Glucose Level 134 Hemoglobin A1c 5.5 Calcium Level 8.4 Phosphorus Level 2.8 Magnesium Level 2.0 Total Bilirubin 3.4 #H Direct Bilirubin 0.00 Indirect Bilirubin 3.4 H Aspartate Amino Transf (AST/SGOT) 29 Alanine Aminotransferase (ALT/SGPT) 23 Alkaline Phosphatase 92 Total Protein 8.2 H Albumin 3.9 Globulin 4.30 H Albumin/Globulin Ratio 0.90 Triglycerides Level 78 Cholesterol Level 157 LDL Cholesterol, Calculated 91 HDL Cholesterol 50 Cholesterol/HDL Ratio 3.1 Lab Scanned Report BLOOD TRANSFUSION Medications Medication Current Medications IV Flush (NS 3 ml) 3 ml PER PROTOCOL IV ; Start 05/21/19 at 12:00 Ondansetron HCl (Zofran Inj) 4 mg Q6H PRN IV NAUSEA/VOMITING Last administered on 05/22/19 04:09; Admin Dose 4 MG; Start 05/21/19 at 12:00 Acetaminophen (Tylenol Tab) 650 mg Q6H PRN PO .PAIN 1-3 OR TEMP Last ad ministered on 05/22/19 12:14; Admin Dose 650 MG; Start 05/21/19 at 12:00 Hydromorphone HCl (Dilaudid) 1 mg Q4H PRN IV SEVERE PAIN LEVEL 7-10 Last administered on 05/22/19 08:43; Admin Dose 1 MG; Start 05/21/19 at 14:30 Ferric Sodium Gluconate Complex 125 mg/Sodium Chloride 100 ml @ 100 mls/hr DA CALIN@1300 IVPB ; Start 05/22/19 at 18:00; Stop 05/24/19 at 13:59 Piperacillin Sod/ Tazobactam Sod 100 ml @ 200 mls/hr Q6 IVPB Last administered on 05/22/19at 12:36; Admin Dose 200 MLS/HR; Start 05/21/19 at 18:00 Polyethylene Glycol (Miralax) 17 gm DAILY PRN PO CONSTIPATION; Start 05/21/19 at 15:00 Docusate Sodium (Colace) 250 mg BID PO Last administered on 05/22/19 08:42; Admin Dose 250 MG; Start 05/21/19 at 21:00 Pantoprazole (Protonix Tab) 40 mg BID@06,18 PO Last administered on 05/22/19 07:01; Admin Dose 40 MG; Start 05/21/19 at 18:00 Sodium Chloride 1,000 ml @ 75 mls/hr [id number] IV Last administered on 05/22/19 07:04; Admin Dose 75 MLS/HR; Start 05/21/19 at 15:30 ELIZABETH PEREZ [employer] May 22, 2019 16:11
[2019-05-22] MEDS: SOD FERRIC GLUC COMPLX 125 MG in SOD CHLORIDE 0.9% 100 ML IVPB SCH (18:29)
[2019-05-22 20:40] VITALS: BP 120/73; PULSE 92; RESP 18
--- NOTE | 2019-05-22 23:15 | PN ---
Date/Time of Note Date/Time of Note DATE: 05/22/19 TIME: 23:15 Assessment/Plan Lines/Catheters IV Catheter Type (from [facility]): Peripheral IV Assessment/Plan Chief Complaint/Hosp Course 1. Symptomatic cholelithiasis with +HIDA, worsening leukocytosis, probable cholecystitis -Antibiotics -N.p.o. -IV fluids -OR 2. Abdominal pain 2nd above -Pain management -As above 3. Microcytic hypochromic anemia. ? Menorrhagia. Responded to transfusion. -Further work-up and management per medical team 4. Obesity, BMI 32 -diet, exercise optimization -encourage weight loss Thank you, Subjective 24 Hr Interval Summary s/p pRBC transfusion with adequate response. Fevers. No chills. Worsening wbc. HIDA+. No cp/sob. No cough. No sz. No bleeding. Abdominal pain. No dysuria. Bowel function. Exam/Review of Systems Vital Signs Vitals Vital Signs Date Temp Pulse Resp B/P (MAP) Pulse Ox O2 O2 Flow FiO2 Time Delivery Rate 05/22/19 98.4 92 18 120/73 95 20:40 (89) 05/22/19 Room Air 15:54 Intake and Output 05/21/19 05/21/19 05/22/19 1515:00 23:00 07:00 IntakeIntake Total 1350 ml 1000 ml 875 ml BalanceBalance 1350 ml 1000 ml 875 ml Exam Free Text/Dictation Constitutional: alert, oriented, obese Psych: anxiety (min) Head: normocephalic, atraumatic Eyes: nl conjunctiva, nl lids, nl sclera ENMT: nl external ears & nose, nl lips & teeth, mucosa pink and moist Neck: supple, non-tender Respiratory: normal air movement; No congested cough Cardiovascular: regular rate and rhythm, nl pulses Gastrointestinal: soft, distended (mod), tender (mod), no rebound/guarding/rigidity Genitourinary - Female: nl external genitalia Musculoskeletal: nl gait and stance Extremities: normal pulses; No edema, No pitting pedal edema Neurological: nl mental status, nl speech, nl strength Skin: No rash or lesions Lymph: nl lymph nodes Results Result Diagram: 05/22/19 0425 05/22/19 0425 WILLIE MANUEL MD May 22, 2019 23:15
[2019-05-23] VITALS (24 sets, daily range): BP systolic 100–140; BP diastolic 55–78; PULSE 92–109; RESP 12–21
[2019-05-23] MEDS: SOD CHLORIDE 0.9% 1,000 ML IV SCH ×3 (00:12→22:40)
[2019-05-23] MEDS: HYDROmorphONE 1 MG/ML SYG IV PRN ×5 (04:01→23:21)
[2019-05-23] MEDS: PIPER-TAZO 3.375 GM IV (PMX) 100 ML IVPB SCH ×4 (06:05→23:21)
[2019-05-23] MEDS: PANTOPRAZOLE (EC) 40 MG TAB PO SCH ×2 (06:05→18:25)
[2019-05-23] MEDS: DOCUSATE SODIUM 250 MG CAP PO SCH ×2 (08:02→20:13)
--- NOTE | 2019-05-23 09:42 | PN ---
Date/Time of Note Date/Time of Note DATE: 05/23/19 TIME: 09:38 Assessment/Plan Lines/Catheters IV C[facility] Type (from [facility]): Peripheral IV Assessment/Plan Chief Complaint/Hosp Course 1. Symptomatic cholelithiasis with +HIDA, worsening leukocytosis, probable cholecystitis -Antibiotics -NPO -IV fluids -OR today 2. Abdominal pain 2nd above -Pain management -As above 3. Microcytic hypochromic anemia. ? Menorrhagia. Responded to transfusion. -Further work-up and management per medical team 4. Obesity, BMI 32 -diet, exercise optimization -encourage weight loss Thank you, Subjective 24 Hr Interval Summary Fevers improved. No chills. Labs pending. HIDA+. No cp/sob. No cough. No sz. No bleeding. Abdominal pain persists. No dysuria. Bowel function. Exam/Review of Systems Vital Signs Vitals Vital Signs Date Temp Pulse Resp B/P (MAP) Pulse Ox O2 O2 Flow FiO2 Time Delivery Rate 05/23/19 99.3 92 18 116/56 96 07:26 (76) 05/22/19 Room Air 15:54 Intake and Output 05/22/19 05/22/19 05/23/19 1515:00 23:00 07:00 IntakeIntake Total 350 ml 800 ml 975 ml BalanceBalance 350 ml 800 ml 975 ml Exam Free Text/Dictation Constitutional: alert, oriented, obese Psych: anxiety (min) Head: normocephalic, atraumatic Eyes: nl conjunctiva, nl lids, nl sclera ENMT: nl external ears & nose, nl lips & teeth, mucosa pink and moist Neck: supple, non-tender Respiratory: normal air movement; No congested cough Cardiovascular: regular rate and rhythm, nl pulses Gastrointestinal: soft, distended (mod), tender (mod), ? murphys, no rebound/guarding/rigidity Genitourinary - Female: nl external genitalia Musculoskeletal: nl gait and stance Extremities: normal pulses; No edema, No pitting pedal edema Neurological: nl mental status, nl speech, nl strength Skin: No rash or lesions Lymph: nl lymph nodes Results Result Diagram: 05/22/19 0425 05/22/19 0425 WILLIE MANUEL MD May 23, 2019 09:42
--- NOTE | 2019-05-23 11:30 | PN ---
Date/Time of Note Date/Time of Note DATE: 05/23/19 TIME: 11:28 Assessment/Plan VTE Prophylaxis Risk score (from Ns)>0 risk: 2 SCD applied (from Ns): Yes SCD contraindicated: low risk/ambulating Pharmacological prophylaxis: heparin Pharm contraindication: low risk/ambulating Lines/Catheters [facility] (from [facility]): Peripheral IV Assessment/Plan Problems: (1) Acute cholecystitis Status: Acute Comment: For surgical repair today. Patient's on antibiotics and anticipate that she should do well postop. (2) Symptomatic anemia Status: Chronic Comment: She has been transfused and does not need further blood transfusions. She is receiving parenteral iron. He will need to continue on oral iron therapy for approximately 6 weeks post discharge (3) Obesity (BMI 30.0-34.9) Status: Chronic Comment: Counseled Result Diagram: 05/22/19 0425 05/22/19 0425 Results 24hrs Laboratory Tests Test 05/23/19 11:09 White Blood Count Pending Red Blood Count Pending Hemoglobin Pending Hematocrit Pending Mean Corpuscular Volume Pending Mean Corpuscular Hemoglobin Pending Mean Corpuscular Hemoglobin Concent Pending Red Cell Distribution Width Pending Platelet Count Pending Mean Platelet Volume Pending Subjective 24 Hr Interval Summary Free Text/Dictation She reports after parenteral analgesia her pain is under adequate control. Constitutional: no complaints (No fevers chills or sweats) Respiratory: no complaints Cardiovascular: no complaints Gastrointestinal: pain Genitourinary: no complaints Musculoskeletal: no complaints Exam/Review of Systems Exam Vitals Vital Signs Date Temp Pulse Resp B/P (MAP) Pulse Ox O2 O2 Flow FiO2 Time Delivery Rate 05/23/19 99.3 92 18 116/56 96 07:26 (76) 05/22/19 Room Air 15:54 Intake and Output 05/22/19 05/22/19 05/23/19 1515:00 23:00 07:00 IntakeIntake Total 350 ml 800 ml 975 ml BalanceBalance 350 ml 800 ml 975 ml Constitutional: alert, oriented Neck: supple, non-tender Respiratory: clear to auscultation, normal air movement Cardiovascular: regular rate and rhythm, nl pulses Gastrointestinal: soft, nl liver, spleen, non-tender Results Results 24hrs Laboratory Tests Test 05/23/19 11:09 White Blood Count Pending Red Blood Count Pending Hemoglobin Pending Hematocrit Pending Mean Corpuscular Volume Pending Mean Corpuscular Hemoglobin Pending Mean Corpuscular Hemoglobin Concent Pending Red Cell Distribution Width Pending Platelet Count Pending Mean Platelet Volume Pending Medications Medication Current Medications IV Flush (NS 3 ml) 3 ml PER PROTOCOL IV ; Start 05/21/19 at 12:00 Ondansetron HCl (Zofran Inj) 4 mg Q6H PRN IV NAUSEA/VOMITING Last administered on 05/22/19 04:09; Admin Dose 4 MG; Start 05/21/19 at 12:00 Acetaminophen (Tylenol Tab) 650 mg Q6H PRN PO .PAIN 1-3 OR TEMP Last administered on 05/22/19 12:14; Admin Dose 650 MG; Start 05/21/19 at 12:00 Hydromorphone HCl (Dilaudid) 1 mg Q4H PRN IV SEVERE PAIN LEVEL 7-10 Last administered on 05/23/19 08:02; Admin Dose 1 MG; Start 05/21/19 at 14:30 Ferric Sodium Gluconate Complex 125 mg/Sodium Chloride 100 ml @ 100 mls/hr DAILY@1300 IVPB Last administered on 05/22/19 18:29; Admin Dose 100 MLS/HR; Start 05/22/19 at 18:00; Stop 05/24/19 at 13:59 Piperacillin Sod/ Tazobactam Sod 100 ml @ 200 mls/hr Q6 IVPB Last administered on 05/23/19 11:16; Admin Dose 200 MLS/HR; Start 05/21/19 at 18:00 Polyethylene Glycol (Miralax) 17 gm DAILY PRN PO CONSTIPATION; Start 05/21/19 at 15:00 Docusate Sodium (Colace) 250 mg BID PO Last administered on 05/23/19 08:02; Admin Dose 250 MG; Start 05/21/19 at 21:00 Pantoprazole (Protonix Tab) 40 mg BID@06,18 PO Last administered on 05/23/19 06:05; Admin Dose 40 MG; Start 05/21/19 at 18:00 Sodium Chloride 1,000 ml @ 75 mls/hr [id number] IV Last administered on 05/23/19 00:12; Admin Dose 75 MLS/HR; Start 05/21/19 at 15:30 RK GALEANA MD May 23, 2019 11:30
[2019-05-23] MEDS: SOD FERRIC GLUC COMPLX 125 MG in SOD CHLORIDE 0.9% 100 ML IVPB SCH (12:21)
[2019-05-23] MEDS ORDERED: LACTATED RINGER'S 1,000 ML IV SCH (14:21)
--- NOTE | 2019-05-23 14:21 | PREAC ---
Date/Time of Note Date/Time of Note DATE: 05/23/19 TIME: 14:19 Anesthesia Eval and Record Evaluation Time Pre-Procedure Interview DATE: 05/23/19 TIME: 14:10 Age 38 Sex female NPO: 8 hrs Preoperative diagnosis cholecystitis/cholelithiasis Planned procedure lap. william. poss open Past Medical History Past Medical History: Includes GI: GERD, Obesity Surgery & Anesthesia Issues No known issue Meds Anticoagulation: No Beta Nate within 24 hr: No Reason Beta Nate not given: Pt. not on B-Nate Reported Medications Ibuprofen* (Advil*) 200 Mg Capsule, 600 MG PO Q6H PRN for PAIN, CAP 05/21/19 Current Medications IV Flush (NS 3 ml) 3 ml PER PROTOCOL IV ; Start 05/21/19 at 12:00 Ondansetron HCl (Zofran Inj) 4 mg Q6H PRN IV NAUSEA/VOMITING Last administered on 05/22/19at 04:09; Admin Dose 4 MG; Start 05/21/19 at 12:00 Acetaminophen (Tylenol Tab) 650 mg Q6H PRN PO .PAIN 1-3 OR TEMP Last administered on 05/22/19at 12:14; Admin Dose 650 MG; Start 05/21/19 at 12:00 Hydromorphone HCl (Dilaudid) 1 mg Q4H PRN IV SEVERE PAIN LEVEL 7-10 Last administered on 05/23/19at 12:43; Admin Dose 1 MG; Start 05/21/19 at 14:30 Ferric Sodium Gluconate Complex 125 mg/Sodium Chloride 100 ml @ 100 mls/hr DAILY@1300 IVPB Last administered on 05/23/19at 12:21; Admin Dose 100 MLS/HR; Start 05/22/19 at 18:00; Stop 05/24/19 at 13:59 Piperacillin Sod/ Tazobactam Sod 100 ml @ 200 mls/hr Q6 IVPB Last administered on 05/23/19at 11:16; Admin Dose 200 MLS/HR; Start 05/21/19 at 18:00 Polyethylene Glycol (Miralax) 17 gm DAILY PRN PO CONSTIPATION; Start 05/21/19 at 15:00 Docusate Sodium (Colace) 250 mg BID PO Last administered on 05/23/19at 08:02; Admin Dose 250 MG; Start 05/21/19 at 21:00 Pantoprazole (Protonix Tab) 40 mg BID@06,18 PO Last administered on 05/23/19at 06:05; Admin Dose 40 MG; Start 05/21/19 at 18:00 Sodium Chloride 1,000 ml @ 75 mls/hr [id number] IV Last administered on 05/23/19at 00:12; Admin Dose 75 MLS/HR; Start 05/21/19 at 15:30 Meds reviewed: Yes Allergies Coded Allergies: No Known Allergy (Unverified , 05/21/19) Allergies Reviewed: Yes Labs/Studies Labs Reviewed: Reviewed by anesthesiologist Result Diagram: 05/23/19 1109 05/23/19 1109 Laboratory Tests 05/23/19 11:09 test: Negative Studies: ECG (sr), CXR (nad) Pre-procedure Exam Last vitals Vital Signs Date Temp Pulse Resp B/P (MAP) Pulse Ox O2 O2 Flow FiO2 Time Delivery Rate 05/23/19 99.3 92 18 116/56 96 07:26 (76) 05/22/19 Room Air 15:54 Airway: Adequate mouth opening, Adequate thyromental dist Mallampati: Mallampati II Teeth: Normal Lung: Normal Heart: Normal ASA Physical Status ASA physical status: 2 Emergency: E Planned Anesthetic General/MAC: ETT Nerve block: TAP (bilateral) Planned Pain Management Single shot nerve block (tap if surgeon opens), Parenteral pain med, Local by surgeon Pre-operative Attestations Prior to commencing anesthesia and surgery, the patient was re-evaluated, there was verification of: *The patient's identity *The results of appropriate recent lab work and preoperative vital signs *The above evaluation not changing prior to induction *Anesthetic plan, risk benefits, alternative and complications discussed with patient/family; questions answered; patient/family understands, accepts and wi shes to proceed. Documentation Supervisor used JAROD MORENO MD May 23, 2019 14:21
--- NOTE | 2019-05-23 14:23 | PN ---
Date/Time of Note Date/Time of Note DATE: 05/23/19 TIME: 14:22 Assessment/Plan VTE [place] [facility] risk: 2 [place] [facility] [place] Yes Pharmacological prophylaxis: LMWH Lines/Catheters [facility] Per[facility] IV Assessment/Plan Result Diagram: 05/23/19 1109 05/23/19 1109 Results 24hrs Laboratory Tests Test 05/23/19 11:09 White Blood Count 22.9 #H Red Blood Count 4.86 Hemoglobin 8.7 L Hematocrit 29.7 L Mean Corpuscular Volume 61.1 L Mean Corpuscular Hemoglobin 17.9 L Mean Corpuscular Hemoglobin Concent 29.3 L Red Cell Distribution Width 32.7 H Platelet Count 376 Mean Platelet Volume 9.6 Immature Granulocytes % 1.000 H Neutrophils % 82.8 H Lymphocytes % 8.3 L Monocytes % 7.2 Eosinophils % 0.4 Basophils % 0.3 Nucleated Red Blood Cells % 0.0 Immature Granulocytes # 0.240 H Neutrophils # 18.9 H Lymphocytes # 1.9 Monocytes # 1.7 H Eosinophils # 0.1 Basophils # 0.1 Nucleated Red Blood Cells # 0.0 Sodium Level 137 Potassium Level 3.4 L Chloride Level 107 Carbon Dioxide Level 20 L Anion Gap 10 Blood Urea Nitrogen 8 Creatinine 0.41 L Est Glomerular Filtrat Rate mL/min > 60 Glucose Level 100 Lactic Acid Level 1.2 Calcium Level 8.6 Total Bilirubin 2.7 H Direct Bilirubin 0.00 Indirect Bilirubin 2.7 H Aspartate Amino Transf (AST/SGOT) 36 Alanine Aminotransferase (ALT/SGPT) 39 Alkaline Phosphatase 115 Total Protein 7.5 Albumin 3.5 Globulin 4.00 H Albumin/Globulin Ratio 0.87 Subjective 24 Hr Interval Summary Free Text/Dictation Patient not seen as she is in OR Ferritin is pathognomic for iron deficiency and should continue on IV iron while she is not tolerating PO. Exam/Review of Systems Exam Vitals Vital Signs Date Temp Pulse Resp B/P (MAP) Pulse Ox O2 O2 Flow FiO2 Time Delivery Rate 05/23/19 99.3 92 18 116/56 96 07:26 (76) 05/22/19 Room Air 15:54 Intake and Output 05/22/19 05/22/19 05/23/19 1515:00 23:00 07:00 IntakeIntake Total 350 ml 800 ml 975 ml BalanceBalance 350 ml 800 ml 975 ml Results Results 24hrs Laboratory Tests Test 05/23/19 11:09 White Blood Count 22.9 #H Red Blood Count 4.86 Hemoglobin 8.7 L Hematocrit 29.7 L Mean Corpuscular Volume 61.1 L Mean Corpuscular Hemoglobin 17.9 L Mean Corpuscular Hemoglobin Concent 29.3 L Red Cell Distribution Width 32.7 H Platelet Count 376 Mean Platelet Volume 9.6 Immature Granulocytes % 1.000 H Neutrophils % 82.8 H Lymphocytes % 8.3 L Monocytes % 7.2 Eosinophils % 0.4 Basophils % 0.3 Nucleated Red Blood Cells % 0.0 Immature Granulocytes # 0.240 H Neutrophils # 18.9 H Lymphocytes # 1.9 Monocytes # 1.7 H Eosinophils # 0.1 Basophils # 0.1 Nucleated Red Blood Cells # 0.0 Sodium Level 137 Potassium Level 3.4 L Chloride Level 107 Carbon Dioxide Level 20 L Anion Gap 10 Blood Urea Nitrogen 8 Creatinine 0.41 L Est Glomerular Filtrat Rate mL/min > 60 Glucose Level 100 Lactic Acid Level 1.2 Calcium Level 8.6 Total Bilirubin 2.7 H Direct Bilirubin 0.00 Indirect Bilirubin 2.7 H Aspartate Amino Transf (AST/SGOT) 36 Alanine Aminotransferase (ALT/SGPT) 39 Alkaline Phosphatase 115 Total Protein 7.5 Albumin 3.5 Globulin 4.00 H Albumin/Globulin Ratio 0.87 Medications Medication Current Medications IV Flush (NS 3 ml) 3 ml PER PROTOCOL IV ; Start 05/21/19 at 12:00 Ondansetron HCl (Zofran Inj) 4 mg Q6H PRN IV NAUSEA/VOMITING Last administered on 05/22/19at 04:09; Admin Dose 4 MG; Start 05/21/19 at 12:00 Acetaminophen (Tylenol Tab) 650 mg Q6H PRN PO .PAIN 1-3 OR TEMP Last administered on 05/22/19at 12:14; Admin Dose 650 MG; Start 05/21/19 at 12:00 Hydromorphone HCl (Dilaudid) 1 mg Q4H PRN IV SEVERE PAIN LEVEL 7-10 Last administered on 05/23/19at 12:43; Admin Dose 1 MG; Start 05/21/19 at 14:30 Ferric Sodium Gluconate Complex 125 mg/Sodium Chloride 100 ml @ 100 mls/hr DAILY@1300 IVPB Last administered on 05/23/19at 12:21; Admin Dose 100 MLS/HR; Start 05/22/19 at 18:00; Stop 05/24/19 at 13:59 Piperacillin Sod/ Tazobactam Sod 100 ml @ 200 mls/hr Q6 IVPB Last administered on 05/23/19at 11:16; Admin Dose 200 MLS/HR; Start 05/21/19 at 18:00 Polyethylene Glycol (Miralax) 17 gm DAILY PRN PO CONSTIPATION; Start 05/21/19 at 15:00 Docusate Sodium (Colace) 250 mg BID PO Last administered on 05/23/19at 08:02; Admin Dose 250 MG; Start 05/21/19 at 21:00 Pantoprazole (Protonix Tab) 40 mg BID@06,18 PO Last administered on 05/23/19at 06:05; Admin Dose 40 MG; Start 05/21/19 at 18:00 Sodium Chloride 1,000 ml @ 75 mls/hr [id number] IV Last administered on 05/23/19at 00:12; Admin Dose 75 MLS/HR; Start 05/21/19 at 15:30 RONNI ALMEIDA MD May 23, 2019 14:23
[2019-05-23] MEDS ORDERED: LIDOCAINE 1% (MPF) 30 ML INJ ONE (14:26)
[2019-05-23] MEDS ORDERED: BUPIVACAINE 0.25%/EPI (SDV) 30 ML INJ ONE (14:26)
[2019-05-23] MEDS ORDERED: MIDAZOLAM 1 MG/ML 2 ML INJ ONE (14:27)
[2019-05-23] MEDS ORDERED: LIDOCAINE 2% (SDV) 5 ML INJ ONE (14:27)
[2019-05-23] MEDS ORDERED: SEVOFLURANE 15 MIN ONE (14:27)
[2019-05-23] MEDS ORDERED: CEFAZOLIN 1 GM INJ ONE (14:27)
[2019-05-23] MEDS ORDERED: METOCLOPRAMIDE 10 MG INJ ONE (14:28)
[2019-05-23] MEDS ORDERED: FENTAnyl 50 MCG/ML VIAL ONE (14:28)
[2019-05-23] MEDS ORDERED: ROCURONIUM 50 MG INJ ONE (14:28)
[2019-05-23] MEDS ORDERED: PROPOFOL 20 ML ONE (14:28)
[2019-05-23] MEDS ORDERED: ONDANSETRON 4 MG INJ ONE (14:28)
[2019-05-23] MEDS ORDERED: METOCLOPRAMIDE 10 MG INJ IV PRN (14:30)
[2019-05-23] MEDS ORDERED: HYDROmorphONE 1 MG/5 ML IV SYRINGE IV PRN ×2 (14:30)
[2019-05-23] MEDS ORDERED: DIPHENHYDRAMINE 50 MG INJ IV PRN (14:30)
[2019-05-23] MEDS ORDERED: OXYCODONE/ACETAMINOPHEN (5/325) TAB PO PRN ×2 (14:30)
[2019-05-23] MEDS ORDERED: ONDANSETRON 4 MG INJ IV PRN (14:30)
[2019-05-23] MEDS ORDERED: MIDAZOLAM 1 MG/ML 2 ML INJ IV PRN (14:30)
[2019-05-23] MEDS ORDERED: MEPERIDINE 25 MG INJ IV PRN (14:30)
[2019-05-23] MEDS ORDERED: IOHEXOL 300MG/ML 30 ML BTL ONE (14:58)
[2019-05-23] MEDS ORDERED: KETOROLAC 30 MG INJ ONE (15:30)
--- NOTE | 2019-05-23 15:39 | OPR ---
Date/Time of Note Date/Time of Note DATE: 05/23/19 TIME: 15:35 Operative Report Free Text/Dictation Preoperative Diagnosis: Symptomatic cholelithiasis Acute cholecystitis BMI 32 Postoperative Diagnosis: Symptomatic cholelithiasis Acute cholecystitis Abnormal liver color BMI 32 Difficult operation Operation(s) Performed: 1. Laparoscopic cholecystectomy 2. ICG fluorescence cholangiography 3. Intraoperative cholangiogram 4. Local anesthetic injection, [id number] 5. Laparoscopic guided bilateral transversus abdominis plane block 6. Difficult operation, modifier 22 Surgeon: Willie Manuel MD Community Organization Director: Sagar Rodriguez MD Anesthesia: general, local, & regional Anesthesiologist: Emanuel Herzog MD Estimated Blood Loss: 50 ml's Specimens: Gallbladder Liver Tubes/Drains: 19F Acosta Complications: None Pt Condition Post Procedure: stable Disposition: PACU Indications: 38-year-old female with gallstones, cholecystitis, worsening leukocytosis, and abdominal pain here for cholecystectomy. Risks include but are not limited to bleeding, infection, abscess, seroma, damage to intestines, damage to the liver, damage to biliary tree, hernia formation, chronic pain, biloma, need for reoperations or further surgeries, VA, stroke, PE, DVT, pneumonia, organ failures, or even . Procedure Description: Patient was brought and placed supine on the operating table SCDs were placed, preoperative antibiotics were administered, all pressure points were well- padded, and after induction of anesthesia patient was prepped and draped in usual sterile fashion and timeout was performed. Incision was made in the supraumbilical region, Veress was safely inserted, and after a negative SIP test, abdomen was insufflated to 15mmHg. Veress was removed and 5mm port was safely inserted. Laparoscopy was performed with a 5 mm 30 scope. No injuries were identified. The liver looks somewhat abnormal color. The gallbladder is distended and thickened with significant evidence of inflammation and infection. 12 mm port is placed in subxiphoid under direct visualization followed by an other 5 mm port in the right upper quadrant. All port sites were injected with quarter percent Marcaine with epi and 1% lidocaine prior to any incisions. Bilateral transversus abdominis plane block was performed under laparoscopic visualization to aid with pain control intra-and postoperatively. Patient was placed in reverse Trendelenburg and right side up on gallbladder was retracted superolaterally. The gallbladder was large and distended. Using electrocautery and blunt dissection I was able to identify the cystic artery and cystic duct. The duct was dilated but tapered into the gallbladder. Full critical angle view was identified. ICG fluorescence cholangiography was performed to identify the common bile duct however cystic duct was in lighting up. The cystic duct was very dilated. Decision was made to proceed with intraoperative cholangiogram. Cystostomy was created cholangiogram catheter inserted and cholangiography performed identifying the correct anatomy. Artery was clipped twice proximally and once distally and transected. The duct was transected with Endo PAT white load stapler. The gallbladder was taken off the liver with electrocautery. Hemostasis was obtained. Gallbladder was placed in an Endo Catch bag and removed through the subxiphoid port site. There was complete hemostasis. 19F acosta drain was placed through lateral incision to drain the liver and gallb ladder sites. 12 mm made port site fascia was closed with Endo Close of an 0 Vicryl in a [id number] manner. Ports and CO2 were removed under direct visualization. Next complete hemostasis. Wounds were thoroughly irrigated skin was closed with 4-0 Monocryl in subcuticular fashion. Dermabond was applied. Patient was extubated and transferred to recovery room in stable condition and all counts were correct and the end of the operation 2. WILLIE MANUEL MD May 23, 2019 15:39
--- NOTE | 2019-05-23 15:53 | PAC ---
Date/Time of Note Date/Time of Note DATE: 05/23/19 TIME: 15:53 Post-Anesthesia Notes Post-Anesthesia Note Last documented vital signs Vital Signs Date Temp Pulse Resp B/P (MAP) Pulse Ox O2 O2 Flow FiO2 Time Delivery Rate 05/23/19 98.5 15:49 05/23/19 92 18 116/56 96 07:26 (76) 05/22/19 Room Air 15:54 Activity: WNL Respiratory function: WNL Cardiovascular function: WNL Mental status: Baseline Pain reasonably controlled: Yes Hydration appropriate: Yes Nausea/Vomiting absent: Yes JAROD MORENO MD May 23, 2019 15:53
[2019-05-23] MEDS: HYDROmorphONE 1 MG/5 ML IV SYRINGE IV PRN ×2 (16:25→16:31)
[2019-05-24 02:33] VITALS: BP 119/58; PULSE 109; RESP 18
[2019-05-24] MEDS: HYDROmorphONE 1 MG/ML SYG IV PRN ×2 (03:21→09:17)
[2019-05-24] MEDS: PIPER-TAZO 3.375 GM IV (PMX) 100 ML IVPB SCH ×3 (05:23→17:56)
[2019-05-24] MEDS: PANTOPRAZOLE (EC) 40 MG TAB PO SCH (05:23)
[2019-05-24 07:35] VITALS: BP 112/62; PULSE 88; RESP 19
--- NOTE | 2019-05-24 09:05 | PN ---
Date/Time of Note Date/Time of Note DATE: 05/24/19 TIME: 09:02 Assessment/Plan VTE Prophylaxis Risk score (from Ns)>0 risk: 3 SCD applied (from Ns): Yes Pharmacological prophylaxis: LMWH Lines/Catheters [facility]from [facility]): Peripheral IV Assessment/Plan Assessment/Plan Patient is a 38 year old woman with iron deficiency admitted for abdominal pain treated with cholecystectomy >Iron deficiency anemia Hemoglobin has decreased somewhat, but given her age and symptoms, would defer transfusion for now Continue to monitor hemoglobin with consideration of prophylactic blood transfusion for hemoglobin less than 7 g/dL >S/P cholecystectomy POD#1 Continue supportive care Continue analgesia Case discussed with RN Dr Chaudhary to resume care tomorrow Result Diagram: 05/24/199 05/24/19 0429 Results 24hrs Laboratory Tests Test 05/23/19 11:09 05/24/19 04:29 White Blood Count 22.9 #H 16.8 #H Red Blood Count 4.86 4.39 Hemoglobin 8.7 L 7.8 L Hematocrit 29.7 L 27.3 L Mean Corpuscular Volume 61.1 L 62.2 L Mean Corpuscular Hemoglobin 17.9 L 17.8 L Mean Corpuscular Hemoglobin Concent 29.3 L 28.6 L Red Cell Distribution Width 32.7 H 33.3 H Platelet Count 376 331 Mean Platelet Volume 9.6 Immature Granulocytes % 1.000 H 0.800 H Neutrophils % 82.8 H 86.9 H Lymphocytes % 8.3 L 5.1 L Monocytes % 7.2 6.7 Eosinophils % 0.4 0.2 Basophils % 0.3 0.3 Nucleated Red Blood Cells % 0.0 0.0 Immature Granulocytes # 0.240 H 0.130 H Neutrophils # 18.9 H 14.6 H Lymphocytes # 1.9 0.9 Monocytes # 1.7 H 1.1 H Eosinophils # 0.1 0.0 Basophils # 0.1 0.1 Nucleated Red Blood Cells # 0.0 0.0 Sodium Level 137 141 Potassium Level 3.4 L 3.3 L Chloride Level 107 110 Carbon Dioxide Level 20 L 22 Anion Gap 10 9 Blood Urea Nitrogen 8 7 Creatinine 0.41 L 0.39 L Est Glomerular Filtrat Rate mL/min > 60 > 60 Glucose Level 100 79 Lactic Acid Level 1.2 Calcium Level 8.6 8.3 L Total Bilirubin 2.7 H 1.3 Direct Bilirubin 0.00 0.00 Indirect Bilirubin 2.7 H 1.3 H Aspartate Amino Transf (AST/SGOT) 36 74 H Alanine Aminotransferase (ALT/SGPT) 39 53 Alkaline Phosphatase 115 136 H Total Protein 7.5 7.2 Albumin 3.5 3.3 Globulin 4.00 H 3.90 H Albumin/Globulin Ratio 0.87 0.84 Subjective 24 Hr Interval Summary Free Text/Dictation Patient awake, alert in no respiratory distress. She notes post operative pain Exam/Review of Systems Exam Vitals Vital Signs Date Temp Pulse Resp B/P (MAP) Pulse Ox O2 O2 Flow FiO2 Time Delivery Rate 05/24/19 98.2 88 19 112/62 98 07:35 (79) 05/23/19 Nasal 2.0 17:04 Cannula Intake and Output 05/23/19 05/23/19 05/24/19 1515:00 23:00 07:00 IntakeIntake Total 610 ml 1615 ml 650 ml OutputOutput Total 5 ml 90 ml 440 ml BalanceBalance 605 ml 1525 ml 210 ml Constitutional: alert, oriented Head: normocephalic, atraumatic Eyes: nl conjunctiva, EOMI Neck: supple, non-tender Respiratory: clear to auscultation, normal air movement Cardiovascular: regular rate and rhythm, nl pulses Gastrointestinal: soft, non-tender, distended Extremities: normal pulses Results Results 24hrs Laboratory Tests Test 05/23/19 11:09 05/24/19 04:29 White Blood Count 22.9 #H 16.8 #H Red Blood Count 4.86 4.39 Hemoglobin 8.7 L 7.8 L Hematocrit 29.7 L 27.3 L Mean Corpuscular Volume 61.1 L 62.2 L Mean Corpuscular Hemoglobin 17.9 L 17.8 L Mean Corpuscular Hemoglobin Concent 29.3 L 28.6 L Red Cell Distribution Width 32.7 H 33.3 H Platelet Count 376 331 Mean Platelet Volume 9.6 Immature Granulocytes % 1.000 H 0.800 H Neutrophils % 82.8 H 86.9 H Lymphocytes % 8.3 L 5.1 L Monocytes % 7.2 6.7 Eosinophils % 0.4 0.2 Basophils % 0.3 0.3 Nucleated Red Blood Cells % 0.0 0.0 Immature Granulocytes # 0.240 H 0.130 H Neutrophils # 18.9 H 14.6 H Lymphocytes # 1.9 0.9 Monocytes # 1.7 H 1.1 H Eosinophils # 0.1 0.0 Basophils # 0.1 0.1 Nucleated Red Blood Cells # 0.0 0.0 Sodium Level 137 141 Potassium Level 3.4 L 3.3 L Chloride Level 107 110 Carbon Dioxide Level 20 L 22 Anion Gap 10 9 Blood Urea Nitrogen 8 7 Creatinine 0.41 L 0.39 L Est Glomerular Filtrat Rate mL/min > 60 > 60 Glucose Level 100 79 Lactic Acid Level 1.2 Calcium Level 8.6 8.3 L Total Bilirubin 2.7 H 1.3 Direct Bilirubin 0.00 0.00 Indirect Bilirubin 2.7 H 1.3 H Aspartate Amino Transf (AST/SGOT) 36 74 H Alanine Aminotransferase (ALT/SGPT) 39 53 Alkaline Phosphatase 115 136 H Total Protein 7.5 7.2 Albumin 3.5 3.3 Globulin 4.00 H 3.90 H Albumin/Globulin Ratio 0.87 0.84 Medications Medication Current Medications IV Flush (NS 3 ml) 3 ml PER PROTOCOL IV ; Start 05/21/19 at 12:00 Ondansetron HCl (Zofran Inj) 4 mg Q6H PRN IV NAUSEA/VOMITING Last administered on 05/22/19at 04:09; Admin Dose 4 MG; Start 05/21/19 at 12:00 Acetaminophen (Tylenol Tab) 650 mg Q6H PRN PO .PAIN 1-3 OR TEMP Last admi nistered on 05/22/19at 12:14; Admin Dose 650 MG; Start 05/21/19 at 12:00 Hydromorphone HCl (Dilaudid) 1 mg Q4H PRN IV SEVERE PAIN LEVEL 7-10 Last administered on 05/24/19 03:21; Admin Dose 1 MG; Start 05/21/19 at 14:30 Ferric Sodium Gluconate Complex 125 mg/Sodium Chloride 100 ml @ 100 mls/hr DIPAK Y@1300 IVPB Last administered on 05/23/19at 12:21; Admin Dose 100 MLS/HR; Start 05/22/19 at 18:00; Stop 05/24/19 at 13:59 Piperacillin Sod/ Tazobactam Sod 100 ml @ 200 mls/hr Q6 IVPB Last administered on 05/24/19 05:23; Admin Dose 200 MLS/HR; Start 05/21/19 at 18:00 Polyethylene Glycol (Miralax) 17 gm DAILY PRN PO CONSTIPATION; Start 05/21/19 at 15:00 Docusate Sodium (Colace) 250 mg BID PO Last administered on 05/23/19at 20:13; Admin Dose 250 MG; Start 05/21/19 at 21:00 Pantoprazole (Protonix Tab) 40 mg BID@06,18 PO Last administered on 05/24/19 05:23; Admin Dose 40 MG; Start 05/21/19 at 18:00 Sodium Chloride 1,000 ml @ 75 mls/hr [id number] IV Last administered on 05/23/19at 22:40; Admin Dose 75 MLS/HR; Start 05/21/19 at 15:30 RONNI ALMEIDA MD May 24, 2019 09:05
[2019-05-24] MEDS: DOCUSATE SODIUM 250 MG CAP PO SCH ×2 (09:17→20:19)
[2019-05-24] MEDS: SOD CHLORIDE 0.9% 1,000 ML IV SCH (10:10)
[2019-05-24] MEDS ORDERED: POTASSIUM CHLORIDE (SR) 20 MEQ TAB PO STA (10:38)
--- NOTE | 2019-05-24 10:55 | PN ---
Date/Time of Note Date/Time of Note DATE: 05/24/19 TIME: 10:52 Assessment/Plan VTE Prophylaxis Risk score (from Ns)>0 risk: 3 SCD applied (from Ns): Yes Pharmacological prophylaxis: NA/contraindicated Pharm contraindication: low risk/ambulating Lines/Catheters [facility] Peripheral IV Assessment/Plan Hospital Course SUBJECTIVE: Status post cholecystectomy, POD #1. No nausea or vomiting. Complaining of incisional site pain 7 out of 10. OBJECTIVE: Vital signs-see below PHYSICAL EXAM: Constitutional: Adequately built,not in acute distress. HEENT: Head atraumatic and normocephalic. Eyes: Extraocular muscles intact. Anicteric sclerae. Pupils equal bilaterally, reactive to light. NECK: Supple without lymph node. CHEST: Clear and good breath sounds equally. No wheezing. No rhonchi. HEART: S1, S2. Regular rate and rhythm. ABDOMEN: Laparoscopic incisional site c/d/i. Soft with no rebound tenderness. Bowel sounds were present. EXTREMITIES: No cyanosis, clubbing or edema. NEUROLOGIC: Alert and oriented x3. No focal deficit. No sensory deficit. PSYCHOSOCIAL: No signs of depression. INTEGUMENTARY: No open wounds. ASSESSMENT AND PLAN:38 yo F w/no pmh here w/ sudden onset of right-sided abdominal pain associated with multiple episodes of nonbilious/nonbloody vomiting, found to have cholelithiasis with acute cholecystitis and severe iron deficient anemia. Cholelithiasis with acute cholecystitis -s/p laparoscopic cholecystectomy 05/23/2019 -Encourage IS, ambulation -Pain control -Postop drain management/diet advancement per surgery Iron deficient anemia -Continue Ferrlecit 45 doses followed by oral transition Obesity with a BMI 32 -Lifestyle changes/weight reduction advised. Obtain A1c, lipid panel DVT prophylaxis: SCDs PUD prophylaxis: PPI Disposition: Continue pain control. Encourage IS/ambulation. Diet per surgical recommendation. Disposition when appropriate from surgical team. Patient was seen in collaboration with Dr. Vega Result Diagram: 05/24/19 0429 05/24/199 Results 24hrs Laboratory Tests Test 05/23/19 11:09 05/24/19 04:29 White Blood Count 22.9 #H 16.8 #H Red Blood Count 4.86 4.39 Hemoglobin 8.7 L 7.8 L Hematocrit 29.7 L 27.3 L Mean Corpuscular Volume 61.1 L 62.2 L Mean Corpuscular Hemoglobin 17.9 L 17.8 L Mean Corpuscular Hemoglobin Concent 29.3 L 28.6 L Red Cell Distribution Width 32.7 H 33.3 H Platelet Count 376 331 Mean Platelet Volume 9.6 Immature Granulocytes % 1.000 H 0.800 H Neutrophils % 82.8 H 86.9 H Lymphocytes % 8.3 L 5.1 L Monocytes % 7.2 6.7 Eosinophils % 0.4 0.2 Basophils % 0.3 0.3 Nucleated Red Blood Cells % 0.0 0.0 Immature Granulocytes # 0.240 H 0.130 H Neutrophils # 18.9 H 14.6 H Lymphocytes # 1.9 0.9 Monocytes # 1.7 H 1.1 H Eosinophils # 0.1 0.0 Basophils # 0.1 0.1 Nucleated Red Blood Cells # 0.0 0.0 Sodium Level 137 141 Potassium Level 3.4 L 3.3 L Chloride Level 107 110 Carbon Dioxide Level 20 L 22 Anion Gap 10 9 Blood Urea Nitrogen 8 7 Creatinine 0.41 L 0.39 L Est Glomerular Filtrat Rate mL/min > 60 > 60 Glucose Level 100 79 Lactic Acid Level 1.2 Calcium Level 8.6 8.3 L Total Bilirubin 2.7 H 1.3 Direct Bilirubin 0.00 0.00 Indirect Bilirubin 2.7 H 1.3 H Aspartate Amino Transf (AST/SGOT) 36 74 H Alanine Aminotransferase (ALT/SGPT) 39 53 Alkaline Phosphatase 115 136 H Total Protein 7.5 7.2 Albumin 3.5 3.3 Globulin 4.00 H 3.90 H Albumin/Globulin Ratio 0.87 0.84 Exam/Review of Systems Exam Vitals Vital Signs Date Temp Pulse Resp B/P (MAP) Pulse Ox O2 O2 Flow FiO2 Time Delivery Rate 05/24/19 98.2 88 19 112/62 98 07:35 (79) 05/23/19 Nasal 2.0 17:04 Cannula Intake and Output 05/23/19 05/23/19 05/24/19 1515:00 23:00 07:00 IntakeIntake Total 610 ml 1615 ml 650 ml OutputOutput Total 5 ml 90 ml 440 ml BalanceBalance 605 ml 1525 ml 210 ml Results Results 24hrs Laboratory Tests Test 05/23/19 11:09 05/24/19 04:29 White Blood Count 22.9 #H 16.8 #H Red Blood Count 4.86 4.39 Hemoglobin 8.7 L 7.8 L Hematocrit 29.7 L 27.3 L Mean Corpuscular Volume 61.1 L 62.2 L Mean Corpuscular Hemoglobin 17.9 L 17.8 L Mean Corpuscular Hemoglobin Concent 29.3 L 28.6 L Red Cell Distribution Width 32.7 H 33.3 H Platelet Count 376 331 Mean Platelet Volume 9.6 Immature Granulocytes % 1.000 H 0.800 H Neutrophils % 82.8 H 86.9 H Lymphocytes % 8.3 L 5.1 L Monocytes % 7.2 6.7 Eosinophils % 0.4 0.2 Basophils % 0.3 0.3 Nucleated Red Blood Cells % 0.0 0.0 Immature Granulocytes # 0.240 H 0.130 H Neutrophils # 18.9 H 14.6 H Lymphocytes # 1.9 0.9 Monocytes # 1.7 H 1.1 H Eosinophils # 0.1 0.0 Basophils # 0.1 0.1 Nucleated Red Blood Cells # 0.0 0.0 Sodium Level 137 141 Potassium Level 3.4 L 3.3 L Chloride Level 107 110 Carbon Dioxide Level 20 L 22 Anion Gap 10 9 Blood Urea Nitrogen 8 7 Creatinine 0.41 L 0.39 L Est Glomerular Filtrat Rate mL/min > 60 > 60 Glucose Level 100 79 Lactic Acid Level 1.2 Calcium Level 8.6 8.3 L Total Bilirubin 2.7 H 1.3 Direct Bilirubin 0.00 0.00 Indirect Bilirubin 2.7 H 1.3 H Aspartate Amino Transf (AST/SGOT) 36 74 H Alanine Aminotransferase (ALT/SGPT) 39 53 Alkaline Phosphatase 115 136 H Total Protein 7.5 7.2 Albumin 3.5 3.3 Globulin 4.00 H 3.90 H Albumin/Globulin Ratio 0.87 0.84 Medications Medication Current Medications IV Flush (NS 3 ml) 3 ml PER PROTOCOL IV ; Start 05/21/19 at 12:00 Ondansetron HCl (Zofran Inj) 4 mg Q6H PRN IV NAUSEA/VOMITING Last administered on 05/22/19at 04:09; Admin Dose 4 MG; Start 05/21/19 at 12:00 Acetaminophen (Tylenol Tab) 650 mg Q6H PRN PO .PAIN 1-3 OR TEMP Last administer ed on 05/22/19 12:14; Admin Dose 650 MG; Start 05/21/19 at 12:00 Hydromorphone HCl (Dilaudid) 1 mg Q4H PRN IV SEVERE PAIN LEVEL 7-10 Last administered on 05/24/19 09:17; Admin Dose 1 MG; Start 05/21/19 at 14:30 Ferric Sodium Gluconate Complex 125 mg/Sodium Chloride 100 ml @ 100 mls/hr DAILY@1300 IVPB Last administered on 05/23/19 12:21; Admin Dose 100 MLS/HR; Start 05/22/19 at 18:00; Stop 05/26/19 at 13:59 Piperacillin Sod/ Tazobactam Sod 100 ml @ 200 mls/hr Q6 IVPB Last administered on 05/24/19 05:23; Admin Dose 200 MLS/HR; Start 05/21/19 at 18:00 Polyethylene Glycol (Miralax) 17 gm DAILY PRN PO CONSTIPATION; Start 05/21/19 at 15:00 Docusate Sodium (Colace) 250 mg BID PO Last administered on 05/24/19 09:17; Admin Dose 250 MG; Start 05/21/19 at 21:00 Pantoprazole (Protonix Tab) 40 mg BID@06,18 PO Last administered on 05/24/19at 05:23; Admin Dose 40 MG; Start 05/21/19 at 18:00 RAUL RIGGS NP May 24, 2019 10:55
[2019-05-24] MEDS ORDERED: BISACODYL 10 MG SUPP PR ONE (11:00)
--- NOTE | 2019-05-24 11:05 | PN ---
Date/Time of Note Date/Time of Note DATE: 05/24/19 TIME: 10:56 Assessment/Plan VTE Prophylaxis Risk score (from Ns)>0 risk: 3 SCD applied (from Ns): Yes Pharmacological prophylaxis: other (scds) Lines/Catheters IV Catheter Type (from [facility]): Peripheral IV Assessment/Plan Hospital Course Assessment/Plan Assessment: Cholelithiasis/rule out acute cholecystitis -S/p Laparoscopic cholecystectomy 05/23/19 Chronic anemia -likely due to menorrhagia Nausea/vomiting Right upper quadrant abdominal pain Obesity Plan: Pain management No overt signs of GI bleed, pt with hx of menorrhagia GI will sign off but will be available upon reconsult as needed Patient seen in collaboration with Dr. Ramirez Subjective: She currently sitting up in chair complains of surgical pain encourage ambulation as well as deep breathing. No complaint of nausea/vomiting, hematemesis, diarrhea, hematochezia, or melena. PHYSICAL EXAMINATION: GENERAL: Well developed, obese, well nourished, alert & oriented x 3, in no acute distress SKIN: Surgical incisions HEAD: Normocephalic, atraumatic, no tenderness. EYES: Pupils equal reactive to light, no discharge. NECK: Supple, no masses, CHEST: Inspection within normal limits. CARDIOVASCULAR: Heart: Regular rate and rhythm RESPIRATORY: Lungs clear to auscultation GASTROINTESTINAL AND LIVER: Abdomen: Soft, surgical tenderness non-distended, no hernias, no masses, no organomegaly, no ascites, no guarding, no rebound tenderness, normoactive bowel sounds. Rectal: Deferred. EXTREMITIES: No cyanosis, clubbing or edema. Result Diagram: 05/24/19 0429 05/24/19 0429 Results 24hrs Laboratory Tests Test 05/23/19 11:09 05/24/19 04:29 White Blood Count 22.9 #H 16.8 #H Red Blood Count 4.86 4.39 Hemoglobin 8.7 L 7.8 L Hematocrit 29.7 L 27.3 L Mean Corpuscular Volume 61.1 L 62.2 L Mean Corpuscular Hemoglobin 17.9 L 17.8 L Mean Corpuscular Hemoglobin Concent 29.3 L 28.6 L Red Cell Distribution Width 32.7 H 33.3 H Platelet Count 376 331 Mean Platelet Volume 9.6 Immature Granulocytes % 1.000 H 0.800 H Neutrophils % 82.8 H 86.9 H Lymphocytes % 8.3 L 5.1 L Monocytes % 7.2 6.7 Eosinophils % 0.4 0.2 Basophils % 0.3 0.3 Nucleated Red Blood Cells % 0.0 0.0 Immature Granulocytes # 0.240 H 0.130 H Neutrophils # 18.9 H 14.6 H Lymphocytes # 1.9 0.9 Monocytes # 1.7 H 1.1 H Eosinophils # 0.1 0.0 Basophils # 0.1 0.1 Nucleated Red Blood Cells # 0.0 0.0 Sodium Level 137 141 Potassium Level 3.4 L 3.3 L Chloride Level 107 110 Carbon Dioxide Level 20 L 22 Anion Gap 10 9 Blood Urea Nitrogen 8 7 Creatinine 0.41 L 0.39 L Est Glomerular Filtrat Rate mL/min > 60 > 60 Glucose Level 100 79 Lactic Acid Level 1.2 Calcium Level 8.6 8.3 L Total Bilirubin 2.7 H 1.3 Direct Bilirubin 0.00 0.00 Indirect Bilirubin 2.7 H 1.3 H Aspartate Amino Transf (AST/SGOT) 36 74 H Alanine Aminotransferase (ALT/SGPT) 39 53 Alkaline Phosphatase 115 136 H Total Protein 7.5 7.2 Albumin 3.5 3.3 Globulin 4.00 H 3.90 H Albumin/Globulin Ratio 0.87 0.84 Exam/Review of Systems Exam Vitals Vital Signs Date Temp Pulse Resp B/P (MAP) Pulse Ox O2 O2 Flow FiO2 Time Delivery Rate 05/24/19 98.2 88 19 112/62 98 07:35 (79) 05/23/19 Nasal 2.0 17:04 Cannula Intake and Output 05/23/19 05/23/19 05/24/19 1515:00 23:00 07:00 IntakeIntake Total 610 ml 1615 ml 650 ml OutputOutput Total 5 ml 90 ml 440 ml BalanceBalance 605 ml 1525 ml 210 ml Results Results 24hrs Laboratory Tests Test 05/23/19 11:09 05/24/19 04:29 White Blood Count 22.9 #H 16.8 #H Red Blood Count 4.86 4.39 Hemoglobin 8.7 L 7.8 L Hematocrit 29.7 L 27.3 L Mean Corpuscular Volume 61.1 L 62.2 L Mean Corpuscular Hemoglobin 17.9 L 17.8 L Mean Corpuscular Hemoglobin Concent 29.3 L 28.6 L Red Cell Distribution Width 32.7 H 33.3 H Platelet Count 376 331 Mean Platelet Volume 9.6 Immature Granulocytes % 1.000 H 0.800 H Neutrophils % 82.8 H 86.9 H Lymphocytes % 8.3 L 5.1 L Monocytes % 7.2 6.7 Eosinophils % 0.4 0.2 Basophils % 0.3 0.3 Nucleated Red Blood Cells % 0.0 0.0 Immature Granulocytes # 0.240 H 0.130 H Neutrophils # 18.9 H 14.6 H Lymphocytes # 1.9 0.9 Monocytes # 1.7 H 1.1 H Eosinophils # 0.1 0.0 Basophils # 0.1 0.1 Nucleated Red Blood Cells # 0.0 0.0 Sodium Level 137 141 Potassium Level 3.4 L 3.3 L Chloride Level 107 110 Carbon Dioxide Level 20 L 22 Anion Gap 10 9 Blood Urea Nitrogen 8 7 Creatinine 0.41 L 0.39 L Est Glomerular Filtrat Rate mL/min > 60 > 60 Glucose Level 100 79 Lactic Acid Level 1.2 Calcium Level 8.6 8.3 L Total Bilirubin 2.7 H 1.3 Direct Bilirubin 0.00 0.00 Indirect Bilirubin 2.7 H 1.3 H Aspartate Amino Transf (AST/SGOT) 36 74 H Alanine Aminotransferase (ALT/SGPT) 39 53 Alkaline Phosphatase 115 136 H Total Protein 7.5 7.2 Albumin 3.5 3.3 Globulin 4.00 H 3.90 H Albumin/Globulin Ratio 0.87 0.84 Medications Medication Current Medications IV Flush (NS 3 ml) 3 ml PER PROTOCOL IV ; Start 05/21/19 at 12:00 Ondansetron HCl (Zofran Inj) 4 mg Q6H PRN IV NAUSEA/VOMITING Last administered on 05/22/19at 04:09; Admin Dose 4 MG; Start 05/21/19 at 12:00 Acetaminophen (Tylenol Tab) 650 mg Q6H PRN PO .PAIN 1-3 OR TEMP Last administered on 05/22/19at 12:14; Admin Dose 650 MG; Start 05/21/19 at 12:00 Hydromorphone HCl (Dilaudid) 1 mg Q4H PRN IV SEVERE PAIN LEVEL 7-10 Last administered on 05/24/19at 09:17; Admin Dose 1 MG; Start 05/21/19 at 14:30 Ferric Sodium Gluconate Complex 125 mg/Sodium Chloride 100 ml @ 100 mls/hr DAILY@1300 IVPB Last administered on 05/23/19at 12:21; Admin Dose 100 MLS/HR; Start 05/22/19 at 18:00; Stop 05/26/19 at 13:59 Piperacillin Sod/ Tazobactam Sod 100 ml @ 200 mls/hr Q6 IVPB Last administered on 05/24/19at 05:23; Admin Dose 200 MLS/HR; Start 05/21/19 at 18:00 Polyethylene Glycol (Miralax) 17 gm DAILY PRN PO CONSTIPATION; Start 05/21/19 at 15:00 Docusate Sodium (Colace) 250 mg BID PO Last administered on 05/24/19at 09:17; Admin Dose 250 MG; Start 05/21/19 at 21:00 Psyllium Hydrophilic Mucilloid (Metamucil) 1 pkt BID PO ; Start 05/24/19 at 11:30 Acetaminophen/ Hydrocodone Bitart ([place] (5/325)) 1 tab Q4H PRN PO MODERATE PAIN LEVEL 4-6; Start 05/24/19 at 11:00 Bisacodyl (Dulcolax Supp) 10 mg ONCE ONCE [place] ; Start 05/24/19 at 11:00; Stop 05/24/19 at 11:01 CHRISTINE ARIAS May 24, 2019 11:05
[2019-05-24] MEDS: PSYLLIUM 28% PACKET PO SCH ×2 (12:12→20:19)
[2019-05-24] MEDS: HYDROCODONE/APAP (5/325) TAB PO PRN ×2 (12:17→20:19)
[2019-05-24] MEDS ORDERED: BISACODYL (EC) 5 MG TAB PO ONE (13:00)
[2019-05-24] MEDS: SOD FERRIC GLUC COMPLX 125 MG in SOD CHLORIDE 0.9% 100 ML IVPB SCH (13:42)
[2019-05-24 20:45] VITALS: BP 130/72; PULSE 89; RESP 18
--- NOTE | 2019-05-24 22:44 | PN ---
Date/Time of Note Date/Time of Note DATE: 05/24/19 TIME: 22:38 Assessment/Plan Lines/Catheters IV Catheter Type (from [facility]): Peripheral IV [place] in Place (from [facility]): No Assessment/Plan Chief Complaint/Hosp Course 1. Symptomatic cholelithiasis with cholecystitis s/p lap william 05/23 -Drain care -Antibiotics -Diet as tolerated -IV fluids -Pain control -OOB/Ambulate -IS -DC planning when wbc improves 2. Microcytic hypochromic anemia. ? Menorrhagia. Responded to transfusion. -Further work-up and management per medical team 3. Obesity, BMI 32 -diet, exercise optimization -encourage weight loss Thank you, Subjective 24 Hr Interval Summary s/p Lap william 05/23. No fevers, chills. Labs noted. No cp/sob. No cough. No sz. No bleeding. Abdominal pain. No dysuria. Bowel function. Exam/Review of Systems Vital Signs Vitals Vital Signs Date Temp Pulse Resp B/P (MAP) Pulse Ox O2 O2 Flow FiO2 Time Delivery Rate 05/24/19 98.8 18 130/72 96 20:45 (91) 05/24/19 88 07:35 05/23/19 Nasal 2.0 17:04 Cannula Intake and Output 05/23/19 05/23/19 05/24/19 1515:00 23:00 07:00 IntakeIntake Total 610 ml 1615 ml 650 ml OutputOutput Total 5 ml 90 ml 440 ml BalanceBalance 605 ml 1525 ml 210 ml Exam Free Text/Dictation Constitutional: alert, oriented, obese Psych: anxiety (min) Head: normocephalic, atraumatic Eyes: nl conjunctiva, nl lids, nl sclera ENMT: nl external ears & nose, nl lips & teeth, mucosa pink and moist Neck: supple, non-tender Respiratory: normal air movement; No congested cough Cardiovascular: regular rate and rhythm, nl pulses Gastrointestinal: soft, distended (mod), tender (mod), drain, no rebound/guarding/rigidity Genitourinary - Female: nl external genitalia Musculoskeletal: nl gait and stance Extremities: normal pulses; No edema, No pitting pedal edema Neurological: nl mental status, nl speech, nl strength Skin: No rash or lesions Lymph: nl lymph nodes Results Result Diagram: 05/24/19 0429 05/24/19 0429 WILLIE MANUEL MD May 24, 2019 22:44
[2019-05-25] MEDS: PIPER-TAZO 3.375 GM IV (PMX) 100 ML IVPB SCH ×3 (00:17→11:29)
[2019-05-25] MEDS: HYDROCODONE/APAP (5/325) TAB PO PRN ×2 (00:23→07:47)
[2019-05-25 02:46] VITALS: BP 103/51; PULSE 82; RESP 17
[2019-05-25 08:06] VITALS: BP 119/68; PULSE 78; RESP 19
[2019-05-25] MEDS: PSYLLIUM 28% PACKET PO SCH (08:21)
[2019-05-25] MEDS: DOCUSATE SODIUM 250 MG CAP PO SCH (08:21)
--- NOTE | 2019-05-25 11:01 | PN ---
Date/Time of Note Date/Time of Note DATE: 05/25/19 TIME: 10:46 Assessment/Plan Lines/Catheters IV Catheter Type (from Nrs): Peripheral IV [place] in Place (from [facility]): No Assessment/Plan Chief Complaint/Hosp Course 1. Symptomatic cholelithiasis with cholecystitis s/p lap william 05/23 -Drain care> continue drain -DC okay from surgical standpoint with follow-up in office in 1 week. Home with home health for drain care otherwise nursing to educate patient on drain care. Oral antibiotics x5 more days -Diet as tolerated -Pain control -OOB/Ambulate -IS 2. Microcytic hypochromic anemia. ? Menorrhagia. Responded to transfusion. -Further work-up and management per medical team 3. Obesity, BMI 32 -diet, exercise optimization -encourage weight loss Thank you. Patient seen and examined in collaboration with Dr. Eyad Ziegler. Subjective 24 Hr Interval Summary Feels well. Tolerating diet. + Bowel function. No fevers, chills, sob, congested cough, cp, palpitations, ackerman, dizziness, nausea, vomiting, diarrhea, dysuria. Exam/Review of Systems Vital Signs Vitals Vital Signs Date Temp Pulse Resp B/P (MAP) Pulse Ox O2 O2 Flow FiO2 Time Delivery Rate 05/25/19 97.2 78 19 119/68 98 08:06 (85) 05/23/19 Nasal 2.0 17:04 Cannula Intake and Output 05/24/19 05/24/19 05/25/19 1515:00 23:00 07:00 IntakeIntake Total 1670 ml 300 ml 500 ml OutputOutput Total 50 ml 30 ml BalanceBalance 1670 ml 250 ml 470 ml Exam Free Text/Dictation Constitutional: alert, oriented, obese Psych: anxiety (min) Head: normocephalic, atraumatic Eyes: nl conjunctiva, nl lids, nl sclera ENMT: nl external ears & nose, nl lips & teeth, mucosa pink and moist Neck: supple, non-tender Respiratory: normal air movement; No congested cough Cardiovascular: regular rate and rhythm, nl pulses Gastrointestinal: soft, distended (mod), tender (mod), drain (serosanguineous), no rebound/guarding/rigidity Genitourinary - Female: nl external genitalia Musculoskeletal: nl gait and stance Extremities: normal pulses; No edema, No pitting pedal edema Neurological: nl mental status, nl speech, nl strength Skin: No rash or lesions Lymph: nl lymph nodes Results Result Diagram: 05/25/19 0444 05/25/19 0444 JAIRO NARANJO NP May 25, 2019 10:56
--- NOTE | 2019-05-25 13:06 | PDOCDIS ---
Discharge Instructions CONDITION [id number] Patient Condition: [id number] Stable HOME CARE INSTRUCTIONS: [id number] Diet Instructions: Akhdt7a Low Fat /Cholesterol ACTIVITY: [id number] Activity Restrictions: [id number] Slowly Increase Activity Rest between Activity Avoid heavy lifting [id number] Bathing Restrictions: [id number] Shower FOLLOW UP/APPOINTMENTS Follow-up Plan 1.Follow-up with in 1 week Eyad Ziegler MD Specialty General Surgery Comments Office Address [id number] [place] [address] [place] [id number] Office Please follow instructions provided by your nurse regarding taking care of drain at home. 2.YOU HAVE RECEIVED A MEDICAL TREATMENT AT [facility] AND YOUR CONDITION IS STABLE AND CAN BE FOLLOWED UP OUTPATIENT. FURTHER FOLLOW-UPS CAN WAIT UNTIL YOU ARE SEEN IN YOUR DOCTORS OFFICE WITHIN THE NEXT 1-2 DAYS. IT IS YOUR RESPONSIBILITY TO MAKE AN APPOINTMENT FOR FOLOW-UP CARE. IF YOU HAVE A PRIMARY DOCTOR --you should call your primary doctor in 1-2 days and schedule an appointment IF YOU DO NOT HAVE A PRIMARY DOCTOR YOU CAN CALL OUR PHYSICIAN REFERRAL HOTLINE AT IF YOU CAN NOT AFFORD TO SEE A PHYSICIAN YOU CAN CHOSE FROM THE FOLLOWING [facility] [address] [facility]. [facility] [address] [facility] [address] [facility] [address] [facility] [facility] [address] [facility]. [facility]. [address] 3. Call 211 or go to the nearest emergency room if experiencing loss of consciousness, dizziness, chest pain, shortness of breath, vomiting/abdominal pain, speech difficulties, motor weakness or any unusual symptoms. 4. You are also noted with Anemia and is being given Iron. You would need a certified technician follow up to check your anemia status periodically.Alternatively you can follow up with [facility] for hematology referral. RAUL RIGGS NP May 25, 2019 13:06
--- NOTE | 2019-05-25 13:19 | DS ---
Date/Time of Note Date/Time of Note DATE: 05/25/19 TIME: 13:17 Discharge Summary Admission/Discharge Info Admit Date/Time May 21, 2019 at 09:04 Discharge Date/Time Discharge Diagnosis Cholelithiasis with acute cholecystitis -s/p laparoscopic cholecystectomy 05/23/2019 Iron deficient anemia Obesity with a BMI [address]Kashani Aden Procedures 05/21/2019: HIDA scan: IMPRESSION: 1. Nonvisualization of the gallbladder up to 80 minutes post injection. 2. No evidence of a common bile duct obstruction. Delayed images to follow. Hx of Present Illness This is a 38-year-old obese Greenlandic-speaking female with no significant past medical history other than C-sections, presented to the emergency room with sudden onset of right-sided upper/lower abdominal pain associated with multiple episodes of nonbilious/nonbloody vomiting started last night. Patient denied any fever, chills, diarrhea, hematemesis, hematochezia, dysuria, hematuria. Patient reports constipation occasionally. Patient denied chest pain, palpitation, shortness of breath, numbness, tingling, dizziness, loss of consciousness, speech difficulties, vision changes or other constitutional symptoms. Her last LMP was a week ago. In the emergency room, patient was noted with a hemoglobin 6.5, hematocrit 24.9 with microcytic indicis. Chemistries normal, UA unremarkable. Patient had a CT abdomen and pelvis showed cholelithiasis with no CT evidence of obstructive uropathy, renal calculi. There was evidence of retained stool within the proximal colon without any CT evidence of obstruction. There was no CT evidence of appendicitis. Gallbladder ultrasound shows no visible liver lesion or biliary ductal dilatation. There was cholelithiasis in the dependent portion of the gallbladder with gallstones at the gallbladder neck which are nonmobile with borderline gallbladder wall thickening. Patient was given Zosyn in the emergency room and a surgical consult was called. 2 units of PRBC ordered from the emergency room. Hospital Course 38 yo F w/no pmh here w/ sudden onset of right-sided abdominal pain associated with multiple episodes of nonbilious/nonbloody vomiting, found to have cholelithiasis with acute cholecystitis and severe iron deficient anemia. Patient was treated with IV iron. Patient underwent laparoscopic cholecystectomy on 05/23/2019. Postoperatively, patient did well. She was able to tolerate diet. TRACY drain started to slow down. White count improved. She did not have any fevers. Hemoglobin improved and patient received total of 2 units blood transfusion. She was then maintained on iron supplementation. Patient did not have any upper/lower GI bleed signs/symptoms. At this time, patient is cleared from surgical standpoint for outpatient follow-up. She was given instruction on how to drain TRACY until she see surgeon in the clinic in 1 week. Patient was also instructed to follow-up with primary care physician and to have outpatient hematology follow-up. Alternatively, patient was advised to go to [facility] for further hematology follow-up. Approximately 60 m spent on coordinating the discharge on this patient. Patient was seen in collaboration with Dr. Vega. Home Meds Active Scripts Ferrous Sulfate* (Ferrous Sulfate*) 325 Mg Tabec, 325 MG PO TID, #90 TAB Prov:RIGGS,RAUL V. QUALITY MANAGEMENT NURSE 05/25/19 Metronidazole* (Flagyl*) 500 Mg Tablet, 500 MG PO Q8 for 5 Days, #15 TAB Prov:RIGGS,RAUL V. QUALITY MANAGEMENT NURSE 05/25/19 Ciprofloxacin Hcl* (Ciprofloxacin Hcl*) 500 Mg Tablet, 500 MG PO BID for 5 Days, #10 TAB Prov:RIGGS,RAUL V. QUALITY MANAGEMENT NURSE 05/25/19 Polyethylene Glycol* (Miralax*) 17 Gm Powd.pack, 17 GM PO DAILY PRN for CONSTIPATION, #1 BOTTLE Prov:RIGGS,RAUL V. QUALITY MANAGEMENT NURSE 05/25/19 Docusate Sodium* (Colace*) 100 Mg Capsule, 100 MG PO BID, #60 CAP Prov:RIGGS,RAUL V. QUALITY MANAGEMENT NURSE 05/25/19 Reported Medications Ibuprofen* (Advil*) 200 Mg Capsule, 600 MG PO Q6H PRN for PAIN, CAP 05/21/19 Follow-up Plan 1.Follow-up with in 1 week yEad Ziegler MD Specialty General Surgery Comments Office Address [address] [address] Office Please follow instructions provided by your nurse regarding taking care of drain at home. 2.YOU HAVE RECEIVED A MEDICAL TREATMENT AT [facility] AND YOUR CONDITION IS STABLE AND CAN BE FOLLOWED UP OUTPATIENT. FURTHER FOLLOW-UPS CAN WAIT UNTIL YOU ARE SEEN IN YOUR DOCTORS OFFICE WITHIN THE NEXT 1-2 DAYS. IT IS YOUR RESPONSIBILITY TO MAKE AN APPOINTMENT FOR FOLOW-UP CARE. IF YOU HAVE A PRIMARY DOCTOR --you should call your primary doctor in 1-2 days and schedule an appointment IF YOU DO NOT HAVE A PRIMARY DOCTOR YOU CAN CALL OUR PHYSICIAN REFERRAL HOTLINE AT IF YOU CAN NOT AFFORD TO SEE A PHYSICIAN YOU CAN CHOSE FROM THE FOLLOWING [facility] [address] [facility] [address] [facility] [address] [facility] [address] [facility] [address] [facility]. [facility]. [address] 3. Call 911 or go to the nearest emergency room if experiencing loss of consciousness, dizziness, chest pain, shortness of breath, vomiting/abdominal pain, speech difficulties, motor weakness or any unusual symptoms. 4. You are also noted with Anemia and is being given Iron. You would need a waxed bag machine operator follow up to check your anemia status periodically.Alternatively yo u can follow up with [facility] for hematology referral. Primary Care Provider Care Physician No Primary Pending Labs Laboratory Tests Test 05/24/19 22:40 05/25/19 04:44 Stool Occult Blood NEGATIVE (NEGATIVE) White Blood Count 11.0 10^3/ul (4.8-10.8) Red Blood Count 4.29 10^6/ul (4.20-5.40) Hemoglobin 7.8 g/dl (12.0-16.0) Hematocrit 26.9 % (37.0-47.0) Mean Corpuscular Volume 62.7 fl (82.0-101.0) Mean Corpuscular Hemoglobin 18.2 pg (29.0-33.0) Mean Corpuscular 29.0 g/dl (32.0-37.0) Hemoglobin Concent Red Cell Distribution Width 34.4 % (11.5-14.5) Platelet Count 363 10^3/UL (140-415) Mean Platelet Volume 9.4 fl (7.4-10.4) Immature Granulocytes % 0.800 % (0.001-0.429) Neutrophils % 72.1 % (39.0-77.0) Lymphocytes % 17.9 % (15.0-51.0) Monocytes % 7.3 % (0.0-11.0) Eosinophils % 1.5 % (0.0-7.0) Basophils % 0.4 % (0.0-2.0) Nucleated Red Blood Cells % 0.0 /100WBC (0.0-0.0) Immature Granulocytes # 0.090 10^3/ul (0.0-0.031) Neutrophils # 7.9 10^3/ul (1.6-7.5) Lymphocytes # 2.0 10^3/ul (0.8-2.9) Monocytes # 0.8 10^3/ul (0.3-0.9) Eosinophils # 0.2 10^3/ul (0.0-0.5) Basophils # 0.0 10^3/ul (0.0-0.1) Nucleated Red Blood Cells # 0.0 10^3/ul (0.0-0.0) Sodium Level 138 mmol/L (135-144) Potassium Level 3.1 mmol/L (3.5-5.1) Chloride Level 107 mmol/L (97-110) Carbon Dioxide Level 22 mmol/L (21-31) Anion Gap 9 (5-13) Blood Urea Nitrogen 3 mg/dl (7-20) Creatinine 0.36 mg/dl (0.44-1.00) Est Glomerular Filtrat > 60 mL/min (>60) Rate mL/min Glucose Level 95 mg/dl (70-220) Calcium Level 8.6 mg/dl (8.4-10.2) RAUL RIGGS V. QUALITY MANAGEMENT NURSE May 25, 2019 13:19
[2019-05-25] MEDS ORDERED: POTASSIUM CHLORIDE (SR) 20 MEQ TAB PO STA (13:22)
[2019-05-25] MEDS: SOD FERRIC GLUC COMPLX 125 MG in SOD CHLORIDE 0.9% 100 ML IVPB SCH (13:25)
[2019-05-25 14:10] VITALS: BP 111/62; PULSE 68; RESP 20
== END 2019-05-25 14:47 | disposition home or self-care (01) | DRG 419 ==
LOC: E/R 06:54 → MS1 09:04
PROVIDERS: ADMIT Internal Medicine; ATTEND Internal Medicine
PROC: 30233N1 Transfusion of Nonautologous Red Blood Cells into Peripheral Vein, Percutaneous Approach (ICD-10-PCS; 2019-05-21)
PROC: BF13YZZ Fluoroscopy of Gallbladder and Bile Ducts using Other Contrast (ICD-10-PCS; 2019-05-23)
PROC: 0FT44ZZ Resection of Gallbladder, Percutaneous Endoscopic Approach (ICD-10-PCS; principal; 2019-05-23 10:30)
DX: K80.00 Calculus of gallbladder with acute cholecystitis without obstruction (principal); E66.9 Obesity, unspecified; D50.0 Iron deficiency anemia secondary to blood loss (chronic)
CPT/HCPCS: 36415; 36430; 74018; 74176; 76705; 76856; 78226; 80048; 80053; 80061; 81001; 81025; 82270; 82728; 83036; 83540; 83605; 83690; 83735; 84100; 85025; 86850; 86900; 86901; 86920; 88304; 96361; 96374; 96375; A9537; J0690; J1170; J1885; J2175; J2250; J2270; J2405; J2543; J2765; J2916; J3010; J7030; J7120; P9016; Q9967